=== PATIENT | male | born 1980 | race Caucasian/White ===

== ENCOUNTER 2025-03-23 14:49 | Emergency (ER) | payer BC, SELFPAY ==
[2025-03-23] VITALS (10 sets, daily range): BP systolic 123–139; BP diastolic 89–103; PULSE 68–94; RESP 16–19; TEMP 36.7–37.1; O2SAT 98–100; BMI 27.2
--- NOTE | 2025-03-23 15:08 | CT_ITS ---
FINAL REPORT TECHNIQUE: IV contrast enhanced exam This study was performed with techniques to keep radiation doses as low as reasonably achievable, (ALARA). Individualized dose reduction techniques using automated exposure control or adjustment of mA and/or kV according to the patient's size were employed. CLINICAL HISTORY: lower abdominal pain/bleeding with stool COMPARISON: None FINDINGS: Abdomen: Lung bases are clear. The gallbladder is unremarkable. Liver demonstrates a hypodense 13 mm posterior right liver focus, that is denser than a simple cyst. The spleen, pancreas and adrenal glands are unremarkable. Kidneys show no mass or obstruction. No bowel obstruction or fluid collection is seen. Pelvis: The appendix is normal in appearance. There is questionable wall thickening of the splenic flexure versus underdistention. There is severe sigmoid diverticulosis, with wall thickening of the mid sigmoid, with adjacent stranding that likely represents diverticulitis. Trace free fluid is noted in the pelvis. IMPRESSION: 1. Wall thickening of the mid sigmoid colon with stranding in the adjacent soft tissues, that likely represents diverticulitis. 2. There is questionable wall thickening of the splenic flexure versus underdistention. 3. Recommend follow-up colonoscopy for further evaluation. Reviewed, Interpreted and Dictated by Ant Hernandez MD Transcribed by Kat Solis Authenticated and . [facility]
--- NOTE | 2025-03-23 15:17 | ECG_ITS ---
APPROVED REPORT Exam: Resting ECG HR:92 bpm ECG Measurements Heart Rate 92 AXES RI 143 P 65 QRSd 104 QRS 38 QT 367 T 56 QTc 417 Conclusion SINUS RHYTHM POSSIBLE RIGHT VENTRICULAR CONDUCTION DELAY [RSR (QR) IN V1/V2] No STEMI Electronically signed by : ANTONY VERA, 03/24/2025 00:09:03
--- NOTE | 2025-03-23 15:19 | ED_ITS ---
Discharge Plan Disposition Patient Disposition: Home, Self-Care Condition: Fair Prescriptions Prescriptions: New amoxicillin-pot clavulanate 875-125 mg tablet 1 tab PO Q12H Qty: 20 0RF hydrocodone-acetaminophen 5-325 mg tablet 1 tab PO Q8H PRN (Reason: pain) Qty: 12 0RF Referrals Follow up/Referrals: Joseph Quiroga APRN [Referring, Medical] - See instructions Ronnie Jose MD [Primary Care Provider, Medical] - See instructions Activity Restrictions/Add. Instructions Additional Instructions/Restrictions: Increase fluids and rest. Take antibiotics as directed. Please call a GI doctor in your area for colonoscopy. If any worsening pain or problems please return to the ED. Clinical Impressions Clinical Impression: Diverticulitis Stand Alone Forms Stand Alone Forms: Work/School Release Instructions Patient Instructions: DI for Diverticulitis, DI for Acute Abdominal Pain Print Language Print Language: Bulgarian Discharge ED Provider: Janis Young General Adult HPI <Kathi Milligan (ED), SANDY - Last Filed: 03/23/25 18:25> General Chief complaint: Abdominal Pain Stated complaint: poss appendicitis-sent by Joseph Quiroga Time Seen by Provider: 03/23/25 14:59 History of Present Illness HPI narrative: 44-year-old male presents to the ED today for complaint of mid lower abdominal pain that started Sunday. He has been having blood in his stools since Sunday as well. He has been having 5-6 stools a day. He will have small amount of stool come out and then bright red blood. He specifies that it is not dark blood. He says the pain is dull at times and then stabbing at times. He does have a nausea but no vomiting. He had chills and he felt like he had a fever on Sunday. He has not had any abdominal surgeries. He does have history of IBS and diverticulitis. He has no pain with urination. He did some heavy lifting earlier during the week. He did not notice any pain until Sunday. He went to [facility] to see her today since his doctor was out. She sent him here to the ER. No other symptoms noted. Related Data Previous Rx's ?Medication ?Instructions ?Recorded amoxicillin 875 mg-potassium 1 tab PO Q12H #20 tabs clavulanate 125 mg tablet hydrocodone 5 mg-acetaminophen 325 1 tab PO Q8H PRN pa in #12 tabs 03/23/25 mg tablet Allergies Allergy/AdvReac Type Severity Reaction Status Date / Time No Known Allergies Allergy Verified 03/23/25 15:46 PFSH <Kathi Milligan (ED), [employer] - Last Filed: 03/23/25 18:25> PFSH Disclaimer: The information contained in this section may have been updated after the patient was seen, as this information can be updated by other users. Social History (Updated 03/23/25 @ 18:25 by Kathi Milligan (ED), [employer]) Smoking Status: Never smoker alcohol intake: former current occupational status: other Travel in the last 8 weeks?: None Have you lived/traveled outside [place] in past 30 days?: No Contact w/someone who lives/traveled outside US past 30 days?: No Exposure to someone with infectious disease in past 14 days?: No Do you have a fever (greater than 100.4 F or 38 C)?: No Have you tested positive for COVID-19?: No Exposed to someone with COVID-19 in past 14 days?: No Do you have a sore throat?: No Do you have a cough?: No Do you have any weakness?: No Do you have any diarrhea?: No Are you experiencing any unusual bleeding?: No Do you have any muscle aches/pain?: No Do you have any abdominal pain?: No Are you experiencing loss of taste or smell?: No <Kathi Milligan (ED), [employer] - Last Filed: 03/23/25 18:25> ROS Obtained: Yes Systems reviewed as appropriate & no additional complaints except as documented Constitutional Constitutional: Reports as per HPI Physical Exam <Kathi Milligan (ED), [employer] - Last Filed: 03/23/25 18:25> General General appearance: alert and in no apparent distress Head Head exam: atraumatic and normocephalic Eye Eye exam: Present normal appearance, PERRL and EOMI ENT ENT exam: Present normal oropharynx and mucous membranes moist Neck Neck exam: Present full ROM and trachea midline Chest Chest inspection: Present normal inspection Respiratory Respiratory exam: Present normal lung sounds bilaterally Cardiovascular Cardiovascular exam: Present regular rate, normal rhythm, normal heart sounds, +S1 and +S2 Abdominal Exam Abdominal exam: Present soft, tenderness (Low mid abdominal pain and tenderness) and normal bowel sounds Extremities Exam Extremities exam: Present normal inspection, full ROM and normal capillary refill Neurological Exam Neurological exam: Present alert, oriented X3 and normal gait Skin Skin exam: Present warm, dry and intact Medical Decision Making <Kathi Payamkapil (ED), [employer]ST - Last Filed: 03/23/25 18:25> Medical Records Screening: Per USPSTF and CDC recommendations, given the prevalence of disease in our region, it is our hospital?s policy to screen for HIV and viral Hepatitis for all patients aged 18 and over and those with ongoing risk factors. Eder Inquiry Pt receiving controlled substance: No Eder was queried for this patient: No Vital Signs: 03/23/25 15:05 03/23/25 15:06 03/23/25 15:30 Temperature Temperature Source Pulse Rate 88 92 H 87 Pulse Rate [Left Radial] Respiratory Rate Blood Pressure 135/103 H 137/93 H 123/89 Blood Pressure [Right Arm] Blood Pressure Mean Blood Pressure Mean [Right Arm] Blood Pressure Source Blood Pressure Source [Right Arm] Blood Pressure Position Blood Pressure Position [Right Arm] 02 Sat by Pulse Oximetry 99 99 98 Oxygen Delivery Method 03/23/25 15:35 03/23/25 15:46 03/23/25 15:55 Temperature 98.8 F Temperature Source Oral Oral Pulse Rate 80 82 Pulse Rate [Left Radial] 94 H Respiratory Rate 19 16 Blood Pressure 135/90 135/90 Blood Pressure [Right Arm] 135/103 H Blood Pressure Mean Blood Pressure Mean [Right Arm] 113 Blood Pressure Source Automatic Cuff Blood Pressure Source [Right Arm] Automatic Cuff Blood Pressure Position Supine Blood Pressure Position [Right Arm] Supine 02 Sat by Pulse Oximetry 99 98 98 Oxygen Delivery Method Room Air Room Air 03/23/25 16:01 03/23/25 16:30 03/23/25 17:00 Temperature Temperature Source Pulse Rate 75 69 68 Pulse Rate [Left Radial] Respiratory Rate 18 Blood Pressure 133/90 139/90 125/89 Blood Pressure [Right Arm] Blood Pressure Mean 101 Blood Pressure Mean [Right Arm] Blood Pressure Source Automatic Cuff Blood Pressure Source [Right Arm] Blood Pressure Position Sitting Blood Pressure Position [Right Arm] 02 Sat by Pulse Oximetry 99 100 99 Oxygen Delivery Method Room Air 03/23/25 17:29 Temperature 98.0 F Temperature Source Pulse Rate 68 Pulse Rate [Left Radial] Respiratory Rate 16 Blood Pressure 125/89 Blood Pressure [Right Arm] Blood Pressure Mean Blood Pressure Mean [Right Arm] Blood Pressure Source Blood Pressure Source [Right Arm] Blood Pressure Position Blood Pressure Position [Right Arm] 02 Sat by Pulse Oximetry Oxygen Delivery Method Lab Data Lab Results 03/23/25 15:05: WBC 13.9 H, RBC 4.73, Hgb 14.9, Hct 42.1, MCV 89.0, MCH 31.5 H, MCHC 35.4, RDW 11.9, Plt Count 237, MPV 9.8, Neut % (Auto) 81.3 H, Lymph % (Auto) 11.3, [place] % (Auto) 6.5, Eos % (Auto) 0.3, Baso % (Auto) 0.3, Neut # (Auto) 11.3 H, Lymph # (Auto) 1.6, [place] # (Auto) 0.9, Eos # (Auto) 0.0, Baso # (Auto) 0.0, APTT 26.9, Sodium 136, Potassium 3.7, Chloride 99, Carbon Dioxide 26, Anion Gap 14.7, BUN 13, Creatinine 1.00, Estimated GFR 81, Est GFR ( Amer) 98, Glucose 115 H, Calcium 9.3, Magnesium 1.8, Total Bilirubin 1.2, AST 29, ALT 21, Alkaline Phosphatase 76, Troponin I < 0.01, C-Reactive Protein 36.8 H, Total Protein 7.9, Albumin 4.5, Globulin 3.4 H, Albumin/Globulin Ratio 1.3, Lipase 57 03/23/25 16:45: Urine Color Yellow, Urine Appearance Clear, Urine pH 6.5, Ur Specific [place] <= 1.005, Urine Protein Negative, Urine Glucose (UA) Negative, Urine Ketones Negative, Urine Blood 1+ A, Urine Nitrate Negative, Urine Bilirubin Negative, Urine Urobilinogen 0.2, Ur Leukocyte Esterase Negative, Urine WBC Occasional, Urine Bacteria Trace 03/23/25 15:05 03/23/25 15:05 Orders (Tests/Meds): ED MEDICATIONS Discontinued Medications Generic Name Dose Route Start Last Admin Trade Name Freq PRN Reason Stop Dose Admin Acetaminophen 1,000 mg 03/23/25 15:08 03/23/25 15:32 Acetaminophen 1,000mg/100ml Vial IV 03/23/25 15:09 1,000 mg ONCE ONE Administration Hydrocodone Bitart/Acetaminophen 2 tab 03/23/25 16:56 03/23/25 17:07 Hydrocodone/Apap 5/325 Mg Tablet PO 03/23/25 16:57 2 tab ONCE ONE Administration Amoxicillin/Clavulanate Potassium 1 each 03/23/25 16:56 03/23/25 17:07 Amoxicillin/Clavulanate Potassium 875/125mg Tablet PO 03/23/25 16:57 1 each ONCE ONE Administration Sodium Chloride 1,000 mls @ 999 mls/hr 03/23/25 15:08 03/23/25 15:32 Sod Chlor 0.9% 1000ml Bag IV 03/23/25 16:08 999 mls/hr .Q1H1M ONE Administration Iopamidol 75 ml 03/23/25 15:39 03/23/25 15:41 Iopamidol-370 (76%);100ml Bottle IV 03/23/25 15:40 75 ml ONCE ONE Administration Ondansetron HCl 4 mg 03/23/25 15:08 03/23/25 15:32 Ondansetron 4mg/2ml Vial IV 03/23/25 15:09 4 mg ONCE ONE Administration Sodium Chloride 10 ml 03/23/25 15:39 03/23/25 15:41 Sodium Chloride 0.9% 10ml Syr (Rad Only) IV 04/22/25 15:38 10 ml NEEDED PRN Administration Maintain IV Site ORDERS Category Date Time Status CT abdomen pelvis w con Stat Cat Scan 03/23/25 15:08 Completed CBC [Complete Blood Count Auto Diff] Stat Lab 03/23/25 15:05 Completed CRP [C-Reactive Protein] Stat Lab 03/23/25 15:05 Completed Comprehensive Metabolic Panel Stat Lab 03/23/25 15:05 Completed Erythrocyte Sedimentation Rate Stat Lab 03/23/25 15:05 Stop Req Lipase Stat Lab 03/23/25 15:05 Completed Magnesium Stat Lab 03/23/25 15:05 Completed PTT [Activated Partial Thrombo Time] Stat Lab 03/23/25 15:05 Completed Trop I [Troponin I] Stat Lab 03/23/25 15:05 Completed UA [Urinalysis and Microscopic] Stat Lab 03/23/25 16:45 Completed Medical Decision Narrative: patient is a 44-year-old male presenting to the emergency department for evaluation of abdominal pain in his low mid abdomen and bright red blood in his stools since Sunday. He also has nausea.. Patient is hemodynamically stable and nontoxic-appearing upon arrival, afebrile. Differential diagnosis includes diverticulitis, urinary infection, kidney stone, IBS, appendicitis, among others. Workup will be conducted with hematologic labs, specific imaging, . Initial inventions include crystalloid bolus, analgesics, antibiotics. Initial workup reviewed by me hematologic labs are remarkable for elevated white count at 13.9. Imaging informally interpreted by me and remarkable for diverticulitis. Formal imaging read remarkable for diverticulitis. Upon repeat evaluation patient's pain is improved. Discussed with Dr. Young we will treat with antibiotics, pain meds and have patient follow-up with GI. Patient's family wants colonoscopy done in [place]. Patient is safe for discharge home. <Janis Young, DO - Last Filed: 03/23/25 19:26> Eder Inquiry Pt receiving controlled substance: Yes Eder was queried for this patient: Yes Risks and benefits of using a controlled substance: were discussed with pt by ut Vital Signs: 03/23/25 15:05 03/23/25 15:06 03/23/25 15:30 Temperature Temperature Source Pulse Rate 88 92 H 87 Pulse Rate [Left Radial] Respiratory Rate Blood Pressure 135/103 H 137/93 H 123/89 Blood Pressure [Right Arm] Blood Pressure Mean Blood Pressure Mean [Right Arm] Blood Pressure Source Blood Pressure Source [Right Arm] Blood Pressure Position Blood Pressure Position [Right Arm] 02 Sat by Pulse Oximetry 99 99 98 Oxygen Delivery Method 03/23/25 15:35 03/23/25 15:46 03/23/25 15:55 Temperature 98.8 F Temperature Source Oral Oral Pulse Rate 80 82 Pulse Rate [Left Radial] 94 H Respiratory Rate 19 16 Blood Pressure 135/90 135/90 Blood Pressure [Right Arm] 135/103 H Blood Pressure Mean Blood Pressure Mean [Right Arm] 113 Blood Pressure Source Automatic Cuff Blood Pressure Source [Right Arm] Automatic Cuff Blood Pressure Position Supine Blood Pressure Position [Right Arm] Supine 02 Sat by Pulse Oximetry 99 98 98 Oxygen Delivery Method Room Air Room Air 03/23/25 16:01 03/23/25 16:30 03/23/25 17:00 Temperature Temperature Source Pulse Rate 75 69 68 Pulse Rate [Left Radial] Respiratory Rate 18 Blood Pressure 133/90 139/90 125/89 Blood Pressure [Right Arm] Blood Pressure Mean 101 Blood Pressure Mean [Right Arm] Blood Pressure Source Automatic Cuff Blood Pressure Source [Right Arm] Blood Pressure Position Sitting Blood Pressure Position [Right Arm] 02 Sat by Pulse Oximetry 99 100 99 Oxygen Delivery Method Room Air 03/23/25 17:29 Temperature 98.0 F Temperature Source Pulse Rate 68 Pulse Rate [Left Radial] Respiratory Rate 16 Blood Pressure 125/89 Blood Pressure [Right Arm] Blood Pressure Mean Blood Pressure Mean [Right Arm] Blood Pressure Source Blood Pressure Source [Right Arm] Blood Pressure Position Blood Pressure Position [Right Arm] 02 Sat by Pulse Oximetry Oxygen Delivery Method Lab Data Lab Results 03/23/25 15:05: WBC 13.9 H, RBC 4.73, Hgb 14.9, Hct 42.1, MCV 89.0, MCH 31.5 H, MCHC 35.4, RDW 11.9, Plt Count 237, MPV 9.8, Neut % (Auto) 81.3 H, Lymph % (Auto) 11.3, [place] % (Auto) 6.5, Eos % (Auto) 0.3, Baso % (Auto) 0.3, Neut # (Auto) 11.3 H, Lymph # (Auto) 1.6, [place] # (Auto) 0.9, Eos # (Auto) 0.0, Baso # (Auto) 0.0, APTT 26.9, Sodium 136, Potassium 3.7, Chloride 99, Carbon Dioxide 26, Anion Gap 14.7, BUN 13, Creatinine 1.00, Estimated GFR 81, Est GFR ( Amer) 98, Glucose 115 H, Calcium 9.3, Magnesium 1.8, Total Bilirubin 1.2, AST 29, ALT 21, Alkaline Phosphatase 76, Troponin I < 0.01, C-Reactive Protein 36.8 H, Total Protein 7.9, Albumin 4.5, Globulin 3.4 H, Albumin/Globulin Ratio 1.3, Lipase 57 03/23/25 16:45: Urine Color Yellow, Urine Appearance Clear, Urine pH 6.5, Ur Specific [place] <= 1.005, Urine Protein Negative, Urine Glucose (UA) Negative, Urine Ketones Negative, Urine Blood 1+ A, Urine Nitrate Negative, Urine Bilirubin Negative, Urine Urobilinogen 0.2, Ur Leukocyte Esterase Negative, Urine WBC Occasional, Urine Bacteria Trace Orders (Tests/Meds): ED MEDICATIONS Discontinued Medications Generic Name Dose Route Start Last Admin Trade Name Anjelica PRN Reason Stop Dose Admin Acetaminophen 1,000 mg 03/23/25 15:08 03/23/25 15:32 Acetaminophen 1,000mg/100ml Vial IV 03/23/25 15:09 1,000 mg ONCE ONE Administration Hydrocodone Bitart/Acetaminophen 2 tab 03/23/25 16:56 03/23/25 17:07 Hydrocodone/Apap 5/325 Mg Tablet PO 03/23/25 16:57 2 tab ONCE ONE Administration Amoxicillin/Clavulanate Potassium 1 each 03/23/25 16:56 03/23/25 17:07 Amoxicillin/Clavulanate Potassium 875/125mg Tablet PO 03/23/25 16:57 1 each ONCE ONE Administration Sodium Chloride 1,000 mls @ 999 mls/hr 03/23/25 15:08 03/23/25 15:32 Sod Chlor 0.9% 1000ml Bag IV 03/23/25 16:08 999 mls/hr .Q1H1M ONE Administration Iopamidol 75 ml 03/23/25 15:39 03/23/25 15:41 Iopamidol-370 (76%);100ml Bottle IV 03/23/25 15:40 75 ml ONCE ONE Administration Ondansetron HCl 4 mg 03/23/25 15:08 03/23/25 15:32 Ondansetron 4mg/2ml Vial IV 03/23/25 15:09 4 mg ONCE ONE Administration Sodium Chloride 10 ml 03/23/25 15:39 03/23/25 15:41 Sodium Chloride 0.9% 10ml Syr (Rad Only) IV 04/22/25 15:38 10 ml NEEDED PRN Administration Maintain IV Site ORDERS Category Date Time Status CT abdomen pelvis w con Stat Cat Scan 03/23/25 15:08 Completed CBC [Complete Blood Count Auto Diff] Stat Lab 03/23/25 15:05 Completed CRP [C-Reactive Protein] Stat Lab 03/23/25 15:05 Completed Comprehensive Metabolic Panel Stat Lab 03/23/25 15:05 Completed Erythrocyte Sedimentation Rate Stat Lab 03/23/25 15:05 Stop Req Lipase Stat Lab 03/23/25 15:05 Completed Magnesium Stat Lab 03/23/25 15:05 Completed PTT [Activated Partial Thrombo Time] Stat Lab 03/23/25 15:05 Completed Trop I [Troponin I] Stat Lab 03/23/25 15:05 Completed UA [Urinalysis and Microscopic] Stat Lab 03/23/25 16:45 Completed ECG Data Tracing #1: I reviewed this ECG and interpreted as documented below: Normal sinus rhythm with a ventricular rate of 92 bpm. Right ventricular conduction delay. Nonspecific ST/T wave changes. No acute ST changes concerning for ischemia. ECG initial impression date: 03/23/25 ECG initial impression time: 15:17 Medical Decision Narrative: patient is a 44-year-old male presenting to the emergency department for evaluation of abdominal pain in his low mid abdomen and bright red blood in his stools since Sunday. He also has nausea.. Patient is hemodynamically stable and nontoxic-appearing upon arrival, afebrile. Differential diagnosis includes diverticulitis, urinary infection, kidney stone, IBS, appendicitis, among others. Workup will be conducted with hematologic labs, specific imaging, . Initial inventions include crystalloid bolus, analgesics, antibiotics. Initial workup reviewed by me hematologic labs are remarkable for elevated white count at 13.9. Imaging informally interpreted by me and remarkable for diverticulitis. Formal imaging read remarkable for diverticulitis. Upon repeat evaluation patient's pain is improved. Discussed with Dr. Young we will treat with antibiotics, pain meds and have patient follow-up with GI. Patient's family wants colonoscopy done in [place]. Patient is safe for discharge home. DO Hector: I was consulted by the RYLEE, and we discussed the complexity of the problems being addressed. I approved the treatment and management plan for this patient's care in the emergency department, thus performing a substantive portion of the medical decision making. I prescribed [place] for pain in the setting of acute diverticulitis. Instructions for safe use were given Janis Young DO Critical Care <Kathi Milligan (ED), [employer]ICAL [employer] - Last Filed: 03/23/25 18:25> Critical Care Time Critical Care Time: No
[2025-03-23 15:20] LABS: Hematocrit 42.1 % (42.0-52.0); Hemoglobin 14.9 g/dL (14.1-18.0); Immature Granulocytes % 0.3 %; Mean Corpuscular HGB Conc 35.4 g/dL (31.8-35.4); Mean Corpuscular Hemoglobin 31.5 pg (27.0-31.2); Mean Corpuscular Volume 89.0 fl (80-94); Nucleated Red Blood Cells % 0 %; Platelet Count 237 K/mm3 (142-424); Red Blood Count 4.73 M/mm3 (4.60-6.20); Red Cell Distribution Width-SD 38.5 fL; White Blood Count 13.9 K/mm3 (4.8-10.8)
[2025-03-23 15:24] LABS: Albumin Level 4.5 g/dl (3.5-5.0); Chloride 99 mmol/L (98-107); Sodium 136 mmol/L (136-145)
[2025-03-23 15:25] LABS: Potassium 3.7 mmoL/L (3.5-5.1)
[2025-03-23 15:27] LABS: Alanine Aminotransferase 21 U/L (12-78); Albumin/Globulin Ratio 1.3 (1.1-1.8); Alkaline Phosphatase 76 U/L (38-126); Anion Gap 14.7 mEq/L (5-15); Aspartate Amino Transferase 29 U/L (17-59); Bilirubin,Total 1.2 mg/dl (0.2-1.3); Blood Urea Nitrogen 13 mg/dl (9-20); Calcium 9.3 mg/dl (8.4-10.2); Carbon Dioxide 26 mmol/L (22.0-30.0); Creatinine,Serum 1.00 mg/dl (0.66-1.25); Estimated Glomerular Filt Rate 81 ml/min (>60); GFR (African American) 98 ML/MIN (>60); Globulin 3.4 g/dL (1.3-3.2); Glucose 115 mg/dl (74-100); Lipase 57 U/L (23-300); Total Protein,Serum 7.9 g/dl (6.3-8.2)
[2025-03-23 15:28] LABS: Magnesium 1.8 mg/dl (1.6-2.3)
[2025-03-23 15:29] LABS: Activated Partial Thrombo Time 26.9 seconds (22.8-30.6)
[2025-03-23] MEDS: ONDANSETRON 4MG/2ML VIAL 4 MG IV (15:32)
[2025-03-23] MEDS: ACETAMINOPHEN 1,000MG/100ML VIAL 1000 MG IV (15:32)
[2025-03-23] MEDS: 0.9 % SODIUM CHLORIDE 1000ML 1,000 ML 999 ML IV (15:32)
[2025-03-23 15:33] LABS: C-Reactive Protein 36.8 mg/L (0-4)
--- OUTSIDE RECORDS SUMMARY | 2025-03-23 15:39 | XMS_ITS | Continuity of Care Document ---
Author Organization [facility] Address [address] [place] [address] Assessment No assessment recorded. Plan of Treatment Reminders Order Date Submit Date Provider Last Modified By Organization Details Last Modified Time Details Appointments Establish ed Patient 2024 01:20P M Joseph Quiroga APRN Not available Not available Not available Follow Up 2025 04:30P M Ronnie Jose MD Not available Not available Not available Lab lipid panel, serum 2024 025 [facility], [address] [place] [address], [id number], 03/19/2025 06:18:08 CMP, serum or plasma 2024 025 [facility], [address] [place] [address], [id number], 03/19/2025 06:18:07 CBC w/ auto diff 2024 025 [facility], [address] [place] [address], [id number], 03/19/2025 06:18:07 TSH + free T4, serum 2024 025 [facility], [address] [place] [address], [id number], 03/19/2025 06:18:06 Referral None recorded. Procedures None recorded. Surgeries None recorded. Imaging None recorded. Medication Orders acyclovir 800 mg tablet 2024 025 [facility] [id number], [address] , [place], [address], 03/18/2025 14:37:59 pantopraz ole 40 mg tablet,de layed release 2024 025 [facility] [id number], [address] [place], [address], 03/18/2025 14:37:58 levothyro xine 75 mcg tablet 2024 025 [facility] [id number], [address] , [place], [address], 03/18/2025 14:37:56 Patient TargetsNo targets recorded. Patient Instructions Encounter Date Encounter Id Patient Instructions Last Modified By Organization Details Last Modified Time 03/18/2025 [id number] Quitting Tobacco : Care Instructions [email or web address] Not available 03/18/2025 15:01:11 Men's Guide to Preventive Health Care [email or web address] Not available 03/18/2025 15:01:11 Reason for Referral None Reported. Problems Name Problem SNOMED Code Status Onset Date Resolution Date Notes Provider Name and Address Organization Details Recorded Time Gastroesop hageal reflux disease without esophagiti s 387749931 Active 2016 SHANNAN Broussard [facility] 7 15:03:47 Restless legs 85726358 Active 2016 SHANNAN Broussard [facility] 7 15:04:07 Hypothyroi dism 68024476 Active 2017 SHANNAN Broussard [facility] 8 16:25:07 Vitamin D deficiency 25753581 Active 2017 SHANNAN Broussard [facility] 8 16:25:17 Testostero ne level below reference range 758694326 Active 2017 SHANNAN Broussard [facility] 8 16:25:30 Hyperlipid emia 18202012 Active 2017 SHANNAN Piña [facility] 8 14:23:50 Nicotine dependence 30188735 Active 2018 Mamie boy[place], [place] - [facility] 9 16:30:11 COVID-19 517000810 Active 2021 Chacha Coley PA-C [address], [place], [address] , [place] - [facility] 2 11:03:02 History of diverticul itis 8010809437758 00 Active 2024 SHANNAN Coleman - [facility] 5 13:39:59 Problem Notes None recorded. Procedures Surgical History Date Name Laterality Status Provider Name and Address Organization Details Recorded Time 08/30/20 23 Medication Reconcilliation completed Maral Sotok [place] - [facility] 08/30/2023 09:16:12 01/09/20 20 Diastolic B/P 80-89 mm Hg completed Mamie Mo [place] - [facility] 01/09/2020 14:35:39 01/09/20 20 Systolic B/P greater than or equal to 140 mm Hg completed Mamie Mo [place] - [facility] 01/09/2020 14:35:34 03/27/20 13 dental surgery completed Sophy Lane [place] - [facility] 03/23/2025 13:25:00 dental surgery completed Heather Bray [place] - [facility] 04/16/2018 14:05:51 Imaging Results None recorded. Procedure Notes None recorded. Medical Equipment None Reported. Allergies No known drug allergies Medications Name Sig Start Date Stop Date Status Note LastModified by Organization Details LastModified Time amoxicill in 500 mg capsule take 1 capsule (500 mg) by oral route every 12 hours for 10 days 08/06 completed amoxicil louie 500 mg oral capsule; Recorded Status: Recorded on: 04/03/20 13 4:14PM;D iscontin ued Status: Disconti nued on: 08/06/20 13 1:22PM;U ser: glascock r Not Available Not Available Not Available ropinirol e 1 mg tablet Take 1 tablet every day by oral route. 07/06 completed Not Available Not Available Not Available Carafate 100 mg/mL oral suspensio n 09/06 completed Not Available Not Available Not Available tizanidin e 4 mg tablet 06/19 completed Not Available Not Available Not Available ranitidin e 300 mg tablet Take 1 tablet every day by oral route. 04/10 completed Not Available Not Available Not Available ondansetr on HCl 4 mg tablet 09/06 completed Not Available Not Available Not Available prednison e 20 mg tablet Take 1 tablet 3 times a day by oral route. 04/10 completed Not Available Not Available Not Available Zithromax Z-Terry 250 mg tablet take 2 tablets (500 mg) by oral route once daily for 1 day then 1 tablet (250 mg) by oral route once daily for 4 days 10/04 completed Zithroma x Z-Terry 250 mg oral tablet;R ecorded Status: Recorded on: 05/23/20 12 11:19AM; Disconti nued Status: Disconti nued on: 10/04/19 13 9:48AM;U ser: grossert ;Est. Completi on: 06/02/20 12;Indic ation: Maxillar y Sinusiti s, Acute - (461.0); Printed: 05/23/20 12 Not Available Not Available Not Available metronida zole 500 mg tablet 03/18 completed Not Available Not Available Not Available ciproflox acin 500 mg tablet 06/18 completed Not Available Not Available Not Available omeprazol e 40 mg capsule,d elayed release take 1 capsule (40 mg) by oral route once daily before a meal for 30 days 05/15 completed omeprazo le 40 mg oral capsule, delayed release( /EC);P rescribe Status: Prescrib ed on: 04/15/20 14 2:28PM;U ser: earlywin ec;Est. Completi on: 05/15/20 14;Pharm acyVerif ied: 04/15/20 14 2:28PM Not Available Not Available Not Available acyclovir 800 mg tablet Take 1 tablet 3 times a day by oral route as needed. 2024 active Not Available Not Available Not Avai lable ondansetr on 8 mg disintegr ating tablet Place 1 tablet every 8 hours by translin gual route for 2 days. 06/19 completed Not Available Not Available Not Available Depo-Medr ol 80 mg/mL suspensio n for injection Take 80 mg by injectio n route. 09/06 completed no reaction to the injectio n site in office Not Available Not Available Not Available Gentak 0.3 % (3 mg/gram) eye ointment 04/10 completed Not Available Not Available Not Available levothyro xine 75 mcg tablet TAKE ONE TABLET BY MOUTH DAILY 2024 active Not Available Not Available Not Avai lable ceftriaxo ne 1 gram solution for injection Take 1 g by injectio n route. 09/06 completed no reaction to the injectio n site office Not Available Not Available Not Available amoxicill in 875 mg tablet 09/06 completed Not Available Not Available Not Available Lortab 10 mg-500 mg tablet 08/06 completed Lortab 10-500 mg oral tablet;R ecorded Status: Recorded on: 04/03/20 13 4:14PM;D iscontin ued Status: Disconti nued on: 08/06/20 13 1:22PM;U ser: glascock r;Indica tion: Pain - (16.7809 00) Not Available Not Available Not Available ropinirol e 0.25 mg tablet Take 1 tablet every day by oral route at bedtime for 30 days. 04/16 completed Not Available Not Available Not Available pantopraz ole 40 mg tablet,de layed release TAKE ONE TABLET BY MOUTH TWICE A DAY 2024 active Not Available Not Available Not Avai lable promethaz ine 25 mg tablet take 1 tablet by oral route Q4-6H PRN N/V 04/03 completed prometha zine 25 mg oral tablet;R ecorded Status: Recorded on: 10/04/19 13 10:05AM; Disconti nued Status: Disconti nued on: 04/03/20 13 4:11PM;U ser: guttmann ;Est. Completi on: 10/09/19 13;Indic ation: Nausea and Vomiting - (16.7870 10);Prin treva: 10/04/19 13 Not Available Not Available Not Available Synthroid 50 mcg tablet Take 1 tablet every day by oral route for 30 days. 04/24 completed pt was told on 01/24/19 to take 1.5 until gone to make 75mcg Not Available Not Available Not Available omeprazol e 20 mg capsule,d elayed release 09/05 completed Not Available Not Available Not Available diclofena c sodium 75 mg tablet,de layed release 01/24 completed Not Available Not Available Not Available testoster one cypionate 200 mg/mL intramusc ular oil Inject 1 mL every 4 weeks by intramus cular route. 01/08 completed Not Available Not Available Not Available levofloxa makayla 500 mg tablet Take 1 tablet every 24 hours by oral route. 04/10 completed Not Available Not Available Not Available methylpre dnisolone 4 mg tablets in a dose pack Take 1 dose pk by oral route as directed . 07/20 completed Not Available Not Available Not Available Vitamin D2 1,250 mcg (50,000 unit) capsule once month 05/23 completed Vitamin D2 50,000 unit oral capsule; Recorded Status: Recorded on: 10/02/19 12 9:21AM;D iscontin ued Status: Disconti nued on: 05/23/20 12 10:58AM; User: jasper Est. Completi on: 03/30/20 12;Print ed: 10/02/19 12 Not Available Not Available Not Available azithromy makayla 500 mg tablet 09/06 completed Not Available Not Available Not Available rosuvasta tin 20 mg tablet Take 1 tablet every day by oral route for 90 days. 2024 active Not Available Not Available Not Avai lable Prevpac 500 mg-500 mg-30 mg oral pack as directed 2011 completed Prevpac 500-500- 30 mg oral combo pack;Rec orded Status: Recorded on: 10/02/19 12 9:21AM;D iscontin ued Status: Disconti nued on: 11/08/19 12 3:14PM;U ser: [email or web address]; Est. Completi on: 10/09/19 12;Print ed: 10/02/19 12 Not Available Not Available Not Available Mucinex DM 30 mg-600 mg tablet,ex tended release 12 hr Take 1 tablet every 12 hours by oral route. 04/10 completed Not Available Not Available Not Available Mucinex D 60 mg-600 mg tablet,ex tended release take 1 tablet by oral route every 12 hours as needed for 10 days 10/04 completed Mucinex D 60-600 mg oral tablet extended release 12 hr;Recor ded Status: Recorded on: 05/23/20 12 11:19AM; Disconti nued Status: Disconti nued on: 10/04/19 13 9:48AM;U ser: grossert ;Est. Completi on: 07/22/20 12;Indic ation: Maxillar y Sinusiti s, Acute - (461.0); Printed: 05/23/20 12 Not Available Not Available Not Available Vitals Date Recorded Body height Body mass index (BMI) Body weight Body temperature Heart rate Oxygen saturation Oxygen saturation in Arterial blood by Pulse oximetry Respiratory rate Systolic And Diastolic Systolic And Diastolic Provider Name and Address Organization Details Last Updated DateTime 5 177.8 cm 27.8 kg/m2 48198.9 2 g 98.5 [degF] 70 /min 97 % 97 % 18 /min 102/90 mm[Hg] 100/86 mm[Hg] Mamie Mo [place] - [facility] 5 14:21:15 Social History Question Answer Notes LastModified by Organizat ion Details LastModified Time Tobacco Smoking Status Former Smoker Mamie Mo [facility], [place] - [facility] 07/06/2021 13:54:37 Able To Swim? Yes Information not available 09/06/2017 Do You Have An Advance Directive? No Information not available 09/06/2017 Are You Blind Or Do You Have Difficulty Seeing? No Information not available 09/06/2017 Is Blood Transfusion Acceptable In An Emergency? Yes Information not available 03/23/2025 What Is Your Level Of Caffeine Consumption? Moderate Information not available 09/06/2017 How Much Tobacco Do You Chew? 1/day 1/2 Can Qd Information not available 09/06/2017 In The 14 Days Before Symptom Onset, Have You Had Close Contact With A Laboratory-confir med COVID-19 While That Case Was Ill? No Information not available 07/20/2023 In The 14 Days Before Symptom Onset, Have You Had Close Contact With A Person Who Is Under Investigation For COVID-19 While That Person Was Ill? No Information not available 07/20/2023 Have You Been To An Area Known To Be High Risk For COVID-19? No Information not available 07/20/2023 Are You Deaf Or Do You Have Serious Difficulty Hearing? No Information not available 09/06/2017 What Type Of Diet Are You Following? REGULAR Information not available 09/06/2017 Which Illicit Or Recreational Drugs Have You Used? None Information not available 09/06/2017 Have You Processed Blood Or Body Fluids From An Ebola Virus Disease Patient Without Appropriate PPE? No Information not available 07/20/2023 Do You Reside In Or Have You Traveled To An Area Where Ebola Virus Transmission Is Active? No Information not available 07/20/2023 What Is The Highest Grade Or Level Of School You Have Completed Or The Highest Degree You Have Received? [id number] Information not available 07/06/2021 Swimming/diving No Informati on not available 09/06/2017 Have There Been Any Changes To Your Family Or Social Situation? No Information no t available 07/06/2021 What Is The Fluoride Status Of Your Home? Fluoridated Information not available 07/06/2021 When Did You Quit Smoking? 1-5yearssindisha martinez Information not available 09/06/2017 Hard Of Hearing Or Deaf In One Or Both Ears? No Information not available 09/06/2017 Have You Recently Or Are You Planning To Travel To An Area With Zika Virus? No Information not available 07/20/2023 How Many Years Have You Used Illicit Or Recreational Drugs? 0 Information not available 03/23/2025 Legally Blind In One Or Both Eyes? No Information no t available 09/06/2017 Live Alone Or With Others? With Others Information not available 09/06/2017 What Was The Date Of Your Most Recent Tobacco Screening? 03/18/2025 Information not available 03/18/2025 How Many Children Do You Have? 3 Information not available 09/06/2017 What Is Your Current Pack Years? 10-19packyears Information not available 07/20/2022 Do You Use Protection During Sex? Always Information not available 03/23/2025 Do You Use Protection Against STDs? Always Information not available 03/23/2025 What Is Your Relationship Status? Information not available 09/06/2017 Do You Use Your Seat Belt Or Car Seat Routinely? Yes Information not available 03/23/2025 Seat Belts Used Routinely Yes Information not available 09/06/2017 Are You Sexually Active? Yes Information not available 09/06/2017 Smoke Alarm In Home Yes Information not available 09/06/2017 Do You Have Smoke And Carbon Monoxide Detectors In Your Home? Yes Information not available 07/06/2021 At What Age Did You Start Smoking Tobacco? 13 Information not available 03/23/2025 Are You Passively Exposed To Smoke? No Information no t available 09/06/2017 How Much Tobacco Do You Smoke? No Information not available 07/06/2021 General Stress Level Low Information not available 09/06/2017 Do You Use Sunscreen Routinely? Yes Information not available 09/06/2017 Has Tobacco Cessation Counseling Been Provided? Yes Information not available 07/06/2021 On What Date Was Tobacco Cessation Counseling Provided? 03/18/2025 Information not available 03/18/2025 How Many Years Have You Smoked Tobacco? 15 Information not available 03/23/2025 Do You Have Difficulty Walking Or Climbing Stairs? No Information not available 09/06/2017 What Contraceptive Method Was Reported At Start Of This Visit? None Information not available 12/21/2022 What Contraceptive Method Was Reported At End Of This Visit? None Information not available 12/21/2022 Do You Want To Talk About Contraception Or Prevention During Your Visit Today? No - This Question Does Not Apply To Me/I Prefer Not To Answer Information not available 12/21/2022 Which Type Of Protection Is Used? Only Have One Partner Information not available 03/23/2025 Sex: Male Functional Status Question Answer Note LastModified by Organizat ion Details LastModified Time Do you or have you ever used smokeless tobacco? Current snuff user 1/2 can qd Information not available 06/19/2019 Are you currently employed? Yes Information not available 09/06/2017 Do you have transportation difficulties? No Information not available 07/06/2021 Are you able to care for yourself? Yes Information n ot available 09/06/2017 Do you have difficulty dressing or bathing? No Information not available 09/06/2017 Do you or have you ever used e-cigarettes or vape? Never used electronic cigarettes Information not available 06/19/2019 What is your exercise level? Occasional Information not available 03/23/2025 Do you use any illicit or recreational drugs? No Information not available 07/06/2021 Do you or have you ever used any other forms of tobacco or nicotine? Yes Information not available 07/06/2021 What is your level of alcohol consumption? None Information not available 09/06/2017 Are you able to walk? YESWOREST Information not available 09/06/2017 Do you have difficulty doing errands alone? 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 [id number] Information not available 07/06/2021 Do you have difficulty concentrating, remembering or making decisions? No Information no t available 09/06/2017 Family History Relationship Description Onset Age of this Age Resolved Age Notes LastModified by Organization Details LastModified Time Mother Diabetes mellitus bstears Not available 2024 13:24:59 Mother Hypertensive disorder Not available 2016 15:05:15 Father Squamous cell carcinoma bstears Not available 2024 13:24:59 Sister Asthma bstears Not available 13:24:59 Sister Diabetes mellitus bstears Not available 2024 13:24:59 Medical History No medical history recorded. Immunizations Vaccine Type Date Status Note Provider Nam e and Address Organization Details Recorded Time Td (adult), 2 Lf tetanus toxoid, preservative free, adsorbed 6 completed Not Available [facility] 03/23/2025 13:05:32 Td (adult), 2 Lf tetanus toxoid, preservative free, adsorbed 4 completed Not Available [facility] 03/23/2025 13:05:32 Past Encounters Encounter ID Performer Location Encounter Start Date Encounter Closed Date Diagnosis/Indication Diagnosis SNOMED-CT Code Diagnosis ICD10 Code Diagnosis Note [id number] Ronnie Jose MD [address] [place] [address] 03/18/2025 13:54:59 03/18/2025 14:51:55 General examination of patient 812411124 Z00.00 Exercises education, guidance, and counseling 176241281 Z71.82 The patient was advised to continue a healthy diet and exercise regularly. Dietary ma nagement surveillance 153232589 Z71.3 Nicotine dependence 5629 4008 F17.200 Testostero ne level below reference range 293390951 R79.89 Hyperlipidemia 43821935 E78.5 Vitamin D deficiency 347 48277 E55.9 Hypothyroidism 91148961 E03.9 Restless legs 67675323 G 25.81 Gastroesop hageal reflux disease without esophagitis 199713191 K21.9 Genital he rpes simplex 89474398 A60.9 Overweight in adulthood with body mass index of 25 or more but less than 30 046226007 Z68.27 Health Concerns Section Related Observation LastModified by Organization Detai ls LastModified Time None Recorded Concern Status LastModified by Organization Details LastModified Time None Recorded Payers Encounter Date Sequence Insurance Name Policy Number Policy Mills Covered Member ID Mills Member ID Guarantor Name 03/18/2025 1 [employer] [employer] [id number] Abisai Fitzgerald [id number] Abisai Fitzgerald Notes Date Note Type Note Provider Name and Address Organization Details Recorded Time 03/18/2025 text/html Here for wellness exam for ins. Feels well. Ronnie Jose MD [facility] [address], [place], [address], [place] - [facility] 03/18/2025 14:38:47
--- OUTSIDE RECORDS SUMMARY | 2025-03-23 15:39 | XMS_ITS | Continuity of Care Document ---
Author Organization [facility] Address [address] [place] [address] Assessment No assessment recorded. Plan of Treatment Reminders Order Date Submit Date Provider Last Modified By Organization Details Last Modified Time Details Appointments Establish ed Patient 2024 01:20P M Joseph Quiroga APRN Not available Not available Not available Follow Up 2025 04:30P M Ronnie Jose MD Not available Not available Not available Lab None recorded. Referral None recorded. Procedures None recorded. Surgeries None recorded. Imaging None recorded. Medication Orders None recorded. Patient TargetsNo targets recorded. Patient InstructionsNo instructions recorded. Reason for Referral None Reported. Problems Name Problem SNOMED Code Status Onset Date Resolution Date Notes Provider Name and Address Organization Details Recorded Time Gastroesop hageal reflux disease without esophagiti s 583155479 Active 2016 SHANNAN Broussard [facility] 7 15:03:47 Restless legs 25254059 Active 2016 SHANNAN Broussard [facility] 7 15:04:07 Hypothyroi dism 48354258 Active 2017 SHANNAN Broussard [facility] 8 16:25:07 Vitamin D deficiency 84531371 Active 2017 SHANNAN Broussard [facility] 8 16:25:17 Testostero ne level below reference range 660998820 Active 2017 SHANNAN Broussard [facility] 8 16:25:30 Hyperlipid emia 15178433 Active 2017 Jaylen Palma SHANNAN boyer - [facility] 8 14:23:50 Nicotine dependence 08718174 Active 2018 SHANNAN Broussard - [facility] 9 16:30:11 COVID-19 780812844 Active 2021 Chacha Coley PA-C [address], [place], [address] , [place] - [facility] 2 11:03:02 History of diverticul itis 6272209546727 00 Active 2024 SHANNAN Coleman - [facility] 5 13:39:59 Problem Notes None recorded. Procedures Surgical History Date Name Laterality Status Provider Name and Address Organization Details Recorded Time 08/30/20 Medication Reconcilliation completed Maral Ward [place] - [facility] 08/30/2023 09:16:12 01/09/20 20 Diastolic B/P 80-89 mm Hg completed Mamie Mo [facility] 01/09/2020 14:35:39 01/09/20 20 Systolic B/P greater than or equal to 140 mm Hg completed Mamie Mo [place] - [facility] 01/09/2020 14:35:34 03/27/20 [address] surgery completed [address] [place] - [facility] 03/23/2025 13:25:00 dental surgery completed Heather Bray [place] - [facility] 04/16/2018 14:05:51 Imaging Results None [...] le 40 mg oral capsule, delayed release( DR/EC);P rescribe Status: Prescrib ed on: 04/15/20 14 [...] 10/09/19 13;Indic ation: Nausea and Vomiting - (16.5570 10);Prin treva: 10/04/19 13 Not Available Not [...] nued on: 05/23/20 12 10:58AM; User: jasper Maldonado Complethazel on: 03/30/20 12;Print ed: 10/02/19 12 Not [...] Disconti nued on: 11/08/19 12 3:14PM;U ser: jasper Est. Completi on: 10/09/19 12;Print ed: 10/02/19 [...] height Body mass index (BMI) Body weight Heart rate Oxygen saturation Oxygen saturation in Arterial blood by Pulse oximetry Respiratory rate Body temperature Systolic And Diastolic Provider Name and Address Organization Details Last Updated DateTime 5 177.8 cm 27.4 kg/m2 82714.5 4 g 98 /min 99 % 99 % 18 /min 98.1 [degF] 110/92 mm[Hg] Sophy [address] [place] - [facility] 5 13:29:15 Social History Question Answer Notes LastModified by Organizat ion Details LastModified Time Tobacco Smoking Status Former Smoker Mamie [place], [place] - [facility] 07/06/2021 13:54:37 Able To [...] Have You Had Close Contact With A Laboratory-[facility] COVID-19 While That Case Was Ill? No [...] Or The Highest Degree You Have Received? [id number] Information not available 07/06/2021 Swimming/diving No Informati on not available 09/06/2017 Have There Been Any Changes To Your Family Or Social Situation? No Information no t available 07/06/2021 What Is The Fluoride Status Of Your Home? Fluoridated Information not available 07/06/2021 When Did You Quit Smoking? 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 [id number] Information not available 07/06/2021 Do you have [...] 13:24:59 Sister Diabetes mellitus bstears Not available 07/14/ 2025 13:24:59 Medical History No medical history recorded. Immunizations Vaccine Type Date Status Note Provider Nam e and Address Organization Details Recorded Time Td (adult), 2 Lf tetanus toxoid, preservative free, adsorbed 6 completed Not Available [facility] 03/23/2025 13:05:32 Td (adult), 2 Lf tetanus toxoid, preservative free, adsorbed 4 completed Not Available [facility] 03/23/2025 13:05:32 Past Encounters Encounter ID Performer Location Encounter Start Date Encounter Closed Date Diagnosis/Indication Diagnosis SNOMED-CT Code Diagnosis ICD10 Code Diagnosis Note [id number] Ronnie Jose MD [address] [place] [address] 03/18/2025 13:54:59 03/18/2025 14:51:55 General examination of patient 748262270 Z00.00 Exercises education, guidance, and counseling 749804885 Z71.82 The patient was advised to continue a healthy diet and exercise regularly. Dietary ma nagement surveillance 119704829 Z71.3 Nicotine dependence 5629 4008 F17.200 Testostero ne level below reference range 677448391 R79.89 Hyperlipidemia 53553731 E78.5 Vitamin D deficiency 347 06960 E55.9 Hypothyroidism 27415451 E03.9 Restless legs 25970269 G 25.81 Gastroesop hageal reflux disease without esophagitis 616816904 K21.9 Genital he rpes simplex 00043109 A60.9 Overweight in adulthood with body mass index of 25 or more but less than 30 510385133 Z68.27 [id number] Joseph Quiroga APRN [address] [address] 03/23/2025 13:04:36 03/23/2025 14:10:46 Lower abdominal pain 64523754 R10.30 sent to ed for eval to r/o appendicit isreport called to er Blood-tinged feces 06832 85761 41902 K92.1 Health Concerns Section Related Observation LastModified by Organization Detai ls LastModified Time None Recorded Concern Status LastModified by Organization Details LastModified Time None Recorded Payers Encounter Date Sequence Insurance Name Policy Number Policy Mills Covered Member ID Mills Member ID Guarantor Name 03/23/2025 1 [place] [employer] [id number] Abisai Fitzgerald [id number] Abisai Fitzgerald Notes Date Note Type Note Provider Name and Address Organization Details Recorded Time 03/23/2025 text/html 44 year old male who presents to the office today with concerns ofrt lower abdominal pain and bright red/pink blood in stool, all started on Sunday, having a hard time walking and sitting, painful when pushing on abdomen,history of diverticulitis in August 2023 Joseph Quiroga, [employer] [address], [place], [address], [place] - [facility] 03/23/2025 14:09:05
--- OUTSIDE RECORDS SUMMARY | 2025-03-23 15:39 | XMS_ITS | Data Portability ---
Author Organization [facility] Address [address] [place] [address] Assessment Encounter Date Assessment Date Assessment LastModified by Organization Details LastModified Time 08/30/2023 08/30/2023 -Medications were reviewed and any necessary updates and renewals were made, patient instructed to complete as prescribed. -The potential side effects of medications were discussed. -Counseling was done on care goals and ways to prevent future hospitalizatio ns. -Further treatment per orders listed below. [email or web address] Not available 08/30/2023 09:16:11 Plan of Treatment Reminders Order Date Submit Date Provider Last Modified By Organization Details Last Modified Time Details Appointments Establish ed Patient 2024 01:20P M Joseph Quiroga APRN Not available Not available Not available Follow Up 2025 04:30P M Ronnie Jose MD Not available Not available Not available Lab lipid panel, serum 2024 025 [facility], [address] [place] [address], [id number], 03/19/2025 06:18:08 CMP, serum or plasma 2024 025 [facility], [address] [place] [address], [id number], 03/19/2025 06:18:07 CBC w/ auto diff 2024 025 [facility], [address] [place] [address], [id number], 03/19/2025 06:18:07 TSH + free T4, serum 2024 025 [facility], [address] [place], [address], 03/19/2025 06:18:06 lipid panel, serum 2023 024 [facility], [address], [address], [place], [address], 06/19/2024 06:21:05 CMP, serum or plasma 2023 024 [facility], [address], [place] [address], [place], [address], 06/19/2024 06:21:04 glucose, fingersti ck, blood 2023 024 [facility], [address] [place] [address] , [place], [address], 06/18/2024 16:16:00 TSH + free T4, serum 2023 024 [facility], [address] [place] [address], [id number], 06/19/2024 06:21:04 lipid panel, serum 2022 023 [facility], [address] [place] [address], [address], 07/21/2023 09:12:52 glucose, fasting, QN, serum or plasma 2022 023 [facility], [address] [place] [address], [address], 07/21/2023 09:12:53 Referral None recorded. Procedures None recorded. Surgeries None recorded. Imaging None recorded. Medication Orders acyclovir 800 mg tablet 2024 025 [facility] [id number], [address] [place] [address] , [place], [address], 03/18/2025 14:37:59 pantopraz ole 40 mg tablet,de layed release 2024 025 [facility] [id number], [address] [facility] [facility] , [place], [address], 03/18/2025 14:37:58 levothyro xine 75 mcg tablet 2024 025 [facility] [id number], [address] , [place], [address], 03/18/2025 14:37:56 pantopraz ole 40 mg tablet,de layed release 2023 024 [facility] [id number], [address] , [place], [address], 06/18/2024 09:17:23 levothyro xine 75 mcg tablet 2023 024 [facility] [id number], [address] , [place], [address], 06/18/2024 09:17:24 acyclovir 800 mg tablet 2022 023 [facility] [id number], [address] , [place], [address], 08/30/2023 10:02:38 levothyro xine 75 mcg tablet 2022 023 [facility] [id number], [address] , [place], [address], 07/20/2023 15:06:19 Patient TargetsNo targets recorded. Patient Instructions Encounter Date Encounter Id Patient Instructions Last Modified By Organization Details Last Modified Time 07/20/2023 [id number] Quitting Tobacco : Care Instructions [email or web address] Not available 07/20/2023 15:05:26 Men's Guide to Preventive Health Care [email or web address] Not available 07/20/2023 15:05:26 learning about healthy weight tgrosser Not available 07/20/2023 15:06:17 08/30/2023 [id number] learning about healthy weight [email or web address] Not available 08/30/2023 10:02:34 Instructed in high fiber diet and told to take fibercon 2 tabs daily. [email or web address] Not available 08/30/2023 10:02:33 06/18/2024 [id number] [facility]'s Guide to Preventive Health Care [email or web address] Not available 06/18/2024 09:15:58 restless legs syndrome: care instructions [email or web address] Not available 06/18/2024 09:15:59 learning about healthy weight [email or web address] Not available 06/18/2024 09:17:17 hypothyroidism: care instructions [email or web address] Not available 06/18/2024 09:15:59 03/18/2025 [id number] Quitting Tobacco : Care Instructions [email or web address] Not available 03/18/2025 15:01:11 [facility]'s Guide to Preventive Health Care [email or web address] Not available 03/18/2025 15:01:11 Reason for Referral None Reported. Results Created Date Observation Date Name Description Value Unit Range Abnormal Flag Note LastModifiedBy Organization Detail LastModifiedTime 07/20/2007/21/2023 LIPID PANEL WITH LDL/H DL RATIO cholesterol, total 211 mg/dL 100-19 9 above high normal Not Available [facility] ([facility]) [address] [place], [address], 07/21/2023 09:12:52 07/20/20 23 07/21/2023 LIPID PANEL WITH LDL/H DL RATIO triglyceride s 156 mg/dL 0-149 above high normal Not Available [facility] ([facility]) [address] [place], [address], 07/21/2023 09:12:52 07/20/2007/21/2023 LIPID PANEL WITH LDL/H DL RATIO HDL cholesterol 44 mg/dL >39 Not Available [facility] ([facility]) [address] [place], [address], 07/21/2023 09:12:52 07/20/20 23 07/21/2023 LIPID PANEL WITH LDL/H DL RATIO VLDL cholesterol laila 28 mg/dL 5-40 Not Available [facility] ([facility]) [address] [place], [address], 07/21/2023 09:12:52 07/20/20 23 07/21/2023 LIPID PANEL WITH LDL/H DL RATIO LDL chol calc ([facility]) 139 mg/dL 0-99 above high normal Not Available [facility] ([facility]) [address] [place], [address], 07/21/2023 09:12:52 07/20/20 23 07/21/2023 LIPID PANEL WITH LDL/H DL RATIO comment: [employer] Not Available [facility] ([facility]) [address] [place], [address], 07/21/2023 09:12:52 07/20/20 23 07/21/2023 LIPID PANEL WITH LDL/H DL RATIO LDL/HDL ratio 3.2 ratio 0.0-3. 6 LDL/H DL Ratio Men Women 1/2 Avg.R isk 1.0 1.5 Avg.R isk 3.6 3.2 2X Avg.R isk 6.2 5.0 3X Avg.R isk 8.0 6.1 Not Available [facility] ([facility]) [address] [place], [address], 07/21/2023 09:12:52 07/20/20 23 07/21/2023 GLUCO SE, PLASM A glucose, plasma 80 mg/dL 70-99 Pleas e Note: Predi abete s 100 - 125 Diabe carmen >125 Not Available [facility] ([facility]) [address] [place], [address], 07/21/2023 09:12:53 06/18/20 24 06/19/2024 TSH+F REE T4 TSH 0.294 uIU/m L 0.450- 4.500 below low normal Not Available [facility] ([facility]) [address] [place], [address], 06/19/2024 06:21:04 06/18/20 24 06/19/2024 TSH+F REE T4 T4,free(dire ct) 1.13 NG/dL 0.82-1 .77 normal Not Available [facility] ([facility]) [address] [facility] [place], [address], 06/19/2024 06:21:04 06/18/20 24 06/19/2024 COMP. METAB OLIC PANEL (14) glucose 99 mg/dL 70-99 normal Not Available [facility] ([facility]) [address] [facility] [place], [address], 06/19/2024 06:21:04 06/18/20 24 06/19/2024 COMP. METAB OLIC PANEL (14) BUN 12 mg/dL 6-24 normal Not Available [facility] ([facility]) [address] [place], [address], 06/19/2024 06:21:04 06/18/20 24 06/19/2024 COMP. METAB OLIC PANEL (14) creatinine 1.05 mg/dL 0.76-1 .27 normal Not Available [facility] ([facility]) [address] [place], [address], 06/19/2024 06:21:04 06/18/20 24 06/19/2024 COMP. METAB OLIC PANEL (14) eGFR 90 mL/mi n/1.7 3 >59 normal Not Available [facility] ([facility]) [address] [place], [address], 06/19/2024 06:21:04 06/18/2006/19/2024 COMP. METAB OLIC PANEL (14) BUN/creatini ne ratio 11 9-20 normal Not Available [facility] ([facility]) [address] [place], [address], 06/19/2024 06:21:04 06/18/2003 0706/19/2024 COMP. METAB OLIC PANEL (14) sodium 138 mmol/ L 134-14 4 normal Not Available [facility] ([facility]) [address] [facility] [place], [address], 06/19/2024 06:21:04 06/18/20 24 06/19/2024 COMP. METAB OLIC PANEL (14) potassium 4.2 mmol/ L 3.5-5. 2 normal Not Available [facility] ([facility]) [address] [facility] [place], [address], 06/19/2024 06:21:04 06/18/20 24 06/19/2024 COMP. METAB OLIC PANEL (14) chloride 103 mmol/ L 96-106 normal Not Available [facility] ([facility]) [address] [facility] [place], [address], 06/19/2024 06:21:04 06/18/20 24 06/19/2024 COMP. METAB OLIC PANEL (14) carbon dioxide, total 22 mmol/ L 20-29 normal Not Available [facility] ([facility]) [address] [place], [address], 06/19/2024 06:21:04 06/18/20 24 06/19/2024 COMP. METAB OLIC PANEL (14) calcium 9.4 mg/dL 8.7-10 .2 normal Not Available [facility] ([facility]) [address] [place], [address], 06/19/2024 06:21:04 06/18/20 24 06/19/2024 COMP. METAB OLIC PANEL (14) protein, total 6.7 g/dL 6.0-8. 5 normal Not Available [facility] ([facility]) [address] [place], [address], 06/19/2024 06:21:04 06/18/20 24 06/19/2024 COMP. METAB OLIC PANEL (14) albumin 4.1 g/dL 4.1-5. 1 normal Not Available [facility] ([facility]) [address] [facility] [place], [address], 06/19/2024 06:21:04 06/18/20 24 06/19/2024 COMP. METAB OLIC PANEL (14) globulin, total 2.6 g/dL 1.5-4. 5 Not Available [facility] ([facility]) [address] [facility] [place], [address], 06/19/2024 06:21:04 06/18/20 24 06/19/2024 COMP. METAB OLIC PANEL (14) bilirubin, total 0.8 mg/dL 0.0-1. 2 normal Not Available [facility] ([facility]) [address] [facility] [place], [address], 06/19/2024 06:21:04 06/18/20 24 06/19/2024 COMP. METAB OLIC PANEL (14) alkaline phosphatase 106 IU/L 44-121 normal Not Available [facility] ([facility]) [address] [facility] [place], [address], 06/19/2024 06:21:04 06/18/20 24 06/19/2024 COMP. METAB OLIC PANEL (14) AST (SGOT) 18 IU/L 0-40 normal Not Available [facility] ([facility]) [address] [facility] [place], [address], 06/19/2024 06:21:04 06/18/20 24 06/19/2024 COMP. METAB OLIC PANEL (14) ALT (SGPT) 11 IU/L 0-44 normal Not Available [facility] ([facility]) [address] [facility] [place], [address], 06/19/2024 06:21:04 06/18/20 24 06/19/2024 LIPID PANEL cholesterol, total 206 mg/dL 100-19 9 above high normal Not Available [facility] ([facility]) [address] [facility] [place], [address], 06/19/2024 06:21:05 06/18/20 24 06/19/2024 LIPID PANEL triglyceride s 101 mg/dL 0-149 normal Not Available [facility] ([facility]) [address] [facility] [place], [address], 06/19/2024 06:21:05 06/18/20 24 06/19/2024 LIPID PANEL HDL cholesterol 48 mg/dL >39 normal Not Available [facility] ([facility]) [address] [facility] [place], [address], 06/19/2024 06:21:05 06/18/20 24 06/19/2024 LIPID PANEL VLDL cholesterol laila 18 mg/dL 5-40 Not Available [facility] ([facility]) [address] [place], [address], 06/19/2024 06:21:05 06/18/20 24 06/19/2024 LIPID PANEL LDL chol calc ([facility]) 140 mg/dL 0-99 above high normal Not Available [facility] ([facility]) [address] [facility] [place], [address], 06/19/2024 06:21:05 06/18/20 24 06/19/2024 LIPID PANEL LDL calc comment: [employer] Not Available [facility] ([facility]) [address] [place], [address], 06/19/2024 06:21:05 03/18/20 25 03/19/2025 TSH+F REE T4 TSH 0.378 uIU/m L 0.450- 4.500 below low normal Not Available [facility] ([facility]) [address] [place], [address], 03/19/2025 06:18:06 03/18/20 25 03/19/2025 TSH+F REE T4 T4,free(dire ct) 0.99 NG/dL 0.82-1 .77 normal Not Available [facility] ([facility]) [address] [place], [address], 03/19/2025 06:18:06 03/18/20 25 03/19/2025 CBC WITH DIFFE RENTI AL/PL ATELE T WBC 7.2 x10e3 /uL 3.4-10 .8 normal Not Available [facility] ([facility]) [address] [place], [address], 03/19/2025 06:18:07 03/18/2003/19/2025 CBC WITH DIFFE RENTI AL/PL ATELE T RBC 4.88 x10e6 /uL 4.14-5 .80 normal Not Available [facility] ([facility]) [address] [place], [address], 03/19/2025 06:18:07 03/18/2003/19/2025 CBC WITH DIFFE RENTI AL/PL ATELE T hemoglobin 15.1 g/dL 13.0-1 7.7 normal Not Available [facility] ([facility]) [address] [place], [address], 03/19/2025 06:18:07 03/18/2003/19/2025 CBC WITH DIFFE RENTI AL/PL ATELE T hematocrit 46.0 % 37.5-5 1.0 normal Not Available [facility] ([facility]) [address] [place], [address], 03/19/2025 06:18:07 03/18/2003/19/2025 CBC WITH DIFFE RENTI AL/PL ATELE T MCV 94 fL 79-97 normal Not Available [facility] ([facility]) [address] [place], [address], 03/19/2025 06:18:07 03/18/20 25 03/19/2025 CBC WITH DIFFE RENTI AL/PL ATELE T MCH 30.9 pg 26.6-3 3.0 normal Not Available [facility] ([facility]) [address] [place], [address], 03/19/2025 06:18:07 03/18/20 25 03/19/2025 CBC WITH DIFFE RENTI AL/PL ATELE T MCHC 32.8 g/dL 31.5-3 5.7 normal Not Available [facility] ([facility]) [address] [facility] [place], [address], 03/19/2025 06:18:07 03/18/20 25 03/19/2025 CBC WITH DIFFE RENTI AL/PL ATELE T RDW 12.7 % 11.6-1 5.4 Not Available [facility] ([facility]) [address] [place], [address], 03/19/2025 06:18:07 03/18/20 25 03/19/2025 CBC WITH DIFFE RENTI AL/PL ATELE T platelets 225 x10e3 /uL 150-45 0 normal Not Available [facility] ([facility]) [address] [place], [address], 03/19/2025 06:18:07 03/18/20 25 03/19/2025 CBC WITH DIFFE RENTI AL/PL ATELE T neutrophils 55 % not estab. normal Not Available [facility] ([facility]) [address] [place], [address], 03/19/2025 06:18:07 03/18/20 25 03/19/2025 CBC WITH DIFFE RENTI AL/PL ATELE T lymphs 37 % not estab. normal Not Available [facility] ([facility]) [address] [place], [address], 03/19/2025 06:18:07 03/18/20 25 03/19/2025 CBC WITH DIFFE RENTI AL/PL ATELE T monocytes 7 % not estab. normal Not Available [facility] ([facility]) [address] [place], [address], 03/19/2025 06:18:07 03/18/20 25 03/19/2025 CBC WITH DIFFE RENTI AL/PL ATELE T eos 1 % not estab. normal Not Available [facility] ([facility]) [address] [facility] [place], [address], 03/19/2025 06:18:07 03/18/20 25 03/19/2025 CBC WITH DIFFE RENTI AL/PL ATELE T basos 0 % not estab. normal Not Available [facility] ([facility]) [address] [facility] [place], [address], 03/19/2025 06:18:07 03/18/20 25 03/19/2025 CBC WITH DIFFE RENTI AL/PL ATELE T immature cells [employer] Not Available [facility] ([facility]) [address] [place], [address], 03/19/2025 06:18:07 03/18/20 25 03/19/2025 CBC WITH DIFFE RENTI AL/PL ATELE T neutrophils (absolute) 3.9 x10e3 /uL 1.4-7. 0 normal Not Available [facility] ([facility]) [address] [place], [address], 03/19/2025 06:18:07 03/18/20 25 03/19/2025 CBC WITH DIFFE RENTI AL/PL ATELE T lymphs (absolute) 2.6 x10e3 /uL 0.7-3. 1 normal Not Available [facility] ([facility]) [address] [place], [address], 03/19/2025 06:18:07 03/18/20 25 03/19/2025 CBC WITH DIFFE RENTI AL/PL ATELE T monocytes(ab solute) 0.5 x10e3 /uL 0.1-0. 9 normal Not Available [facility] ([facility]) [address] [facility] [place], [address], 03/19/2025 06:18:07 03/18/20 25 03/19/2025 CBC WITH DIFFE RENTI AL/PL ATELE T eos (absolute) 0.1 x10e3 /uL 0.0-0. 4 normal Not Available [facility] ([facility]) [address] [facility] [place], [address], 03/19/2025 06:18:07 03/18/20 25 03/19/2025 CBC WITH DIFFE RENTI AL/PL ATELE T baso (absolute) 0.0 x10e3 /uL 0.0-0. 2 normal Not Available [facility] ([facility]) [address] [facility] [place], [address], 03/19/2025 06:18:07 03/18/20 25 03/19/2025 CBC WITH DIFFE RENTI AL/PL ATELE T immature granulocytes 0 % not estab. Not Available [facility] ([facility]) [address] [facility] [place], [address], 03/19/2025 06:18:07 03/18/2003/19/2025 CBC WITH DIFFE RENTI AL/PL ATELE T immature grans (abs) 0.0 x10e3 /uL 0.0-0. 1 Not Available [facility] ([facility]) [address] [place], [address], 03/19/2025 06:18:07 03/18/20 25 03/19/2025 CBC WITH DIFFE RENTI AL/PL ATELE T NRBC [employer] Not Available [facility] ([facility]) [address] [facility] [place], [address], 03/19/2025 06:18:07 03/18/20 25 03/19/2025 CBC WITH DIFFE RENTI AL/PL ATELE T hematology comments: [employer] Not Available [facility] ([facility]) [address] [facility], [place], [address], 03/19/2025 06:18:07 03/18/20 25 03/19/2025 COMP. METAB OLIC PANEL (14) glucose 84 mg/dL 70-99 normal Not Available [facility] ([facility]) [address] [facility] [place], [address], 03/19/2025 06:18:07 03/18/20 25 03/19/2025 COMP. METAB OLIC PANEL (14) BUN 12 mg/dL 6-24 normal Not Available [facility] ([facility]) [address] [facility] [place], [address], 03/19/2025 06:18:07 03/18/20 25 03/19/2025 COMP. METAB OLIC PANEL (14) creatinine 1.16 mg/dL 0.76-1 .27 normal Not Available [facility] ([facility]) [address] [facility] [place], [address], 03/19/2025 06:18:07 03/18/20 25 03/19/2025 COMP. METAB OLIC PANEL (14) eGFR 80 mL/mi n/1.7 3 >59 normal Not Available [facility] ([facility]) [address] [facility] [place], [address], 03/19/2025 06:18:07 03/18/20 25 03/19/2025 COMP. METAB OLIC PANEL (14) BUN/creatini ne ratio 10 9-20 normal Not Available [facility] ([facility]) [address] [facility] [place], [address], 03/19/2025 06:18:07 03/18/20 25 03/19/2025 COMP. METAB OLIC PANEL (14) sodium 138 mmol/ L 134-14 4 normal Not Available [facility] ([facility]) [address] [facility] [place], [address], 03/19/2025 06:18:07 03/18/20 25 03/19/2025 COMP. METAB OLIC PANEL (14) potassium 4.2 mmol/ L 3.5-5. 2 normal Not Available [facility] ([facility]) [address] [facility] [place], [address], 03/19/2025 06:18:07 03/18/20 25 03/19/2025 COMP. METAB OLIC PANEL (14) chloride 100 mmol/ L 96-106 normal Not Available [facility] ([facility]) [address] [place], [address], 03/19/2025 06:18:07 03/18/20 25 03/19/2025 COMP. METAB OLIC PANEL (14) carbon dioxide, total 22 mmol/ L 20-29 normal Not Available [facility] ([facility]) [address] [facility] [place], [address], 03/19/2025 06:18:07 03/18/20 25 03/19/2025 COMP. METAB OLIC PANEL (14) calcium 9.4 mg/dL 8.7-10 .2 normal Not Available [facility] ([facility]) [address] [facility] [place], [address], 03/19/2025 06:18:07 03/18/20 25 03/19/2025 COMP. METAB OLIC PANEL (14) protein, total 6.4 g/dL 6.0-8. 5 normal Not Available [facility] ([facility]) [address] [facility] [place], [address], 03/19/2025 06:18:07 03/18/20 25 03/19/2025 COMP. METAB OLIC PANEL (14) albumin 4.3 g/dL 4.1-5. 1 normal Not Available [facility] ([facility]) [address] [facility] [place], [address], 03/19/2025 06:18:07 07/09/20 25 03/19/2025 COMP. METAB OLIC PANEL (14) globulin, total 2.1 g/dL 1.5-4. 5 Not Available [facility] ([facility]) [address] [facility] [place], [address], 03/19/2025 06:18:07 03/18/20 25 03/19/2025 COMP. METAB OLIC PANEL (14) bilirubin, total 0.8 mg/dL 0.0-1. 2 normal Not Available [facility] ([facility]) [address] [facility] [place], [address], 03/19/2025 06:18:07 03/18/20 25 03/19/2025 COMP. METAB OLIC PANEL (14) alkaline phosphatase 100 IU/L 44-121 normal Not Available [facility] ([facility]) [address] [facility] [place], [address], 03/19/2025 06:18:07 03/18/20 25 03/19/2025 COMP. METAB OLIC PANEL (14) AST (SGOT) 20 IU/L 0-40 normal Not Available [facility] ([facility]) [address] [facility] [place], [address], 03/19/2025 06:18:07 03/18/20 25 03/19/2025 COMP. METAB OLIC PANEL (14) ALT (SGPT) 14 IU/L 0-44 normal Not Available [facility] ([facility]) [address] [facility] [place], [address], 03/19/2025 06:18:07 03/18/20 25 03/19/2025 LIPID PANEL cholesterol, total 227 mg/dL 100-19 9 above high normal Not Available [facility] ([facility]) [address] [facility] [place], [address], 03/19/2025 06:18:08 03/18/20 25 03/19/2025 LIPID PANEL triglyceride s 168 mg/dL 0-149 above high normal Not Available [facility] ([facility]) [address] [place], [address], 03/19/2025 06:18:08 03/18/20 25 03/19/2025 LIPID PANEL HDL cholesterol 43 mg/dL >39 normal Not Available [facility] ([facility]) [address] [place], [address], 03/19/2025 06:18:08 03/18/20 25 03/19/2025 LIPID PANEL VLDL cholesterol laila 31 mg/dL 5-40 Not Available [facility] ([facility]) [address] [place], [address], 03/19/2025 06:18:08 03/18/20 25 03/19/2025 LIPID PANEL LDL chol calc ([facility]) 153 mg/dL 0-99 above high normal Not Available [facility] ([facility]) [address] [place], [address], 03/19/2025 06:18:08 03/18/20 25 03/19/2025 LIPID PANEL LDL calc comment: [employer] Not Available [facility] ([facility]) [address] [place], [address], 03/19/2025 06:18:08 Result Notes None recorded. Problems Name Problem SNOMED Code Status Onset Date Resolution Date Notes Provider Name and Address Organization Details Recorded Time Gastroesop hageal reflux disease without esophagiti s [id number] Active 2016 SHANNAN Broussard - [facility] 7 15:03:47 Restless legs 06560170 Active 2016 SHANNAN Broussard - [facility] 7 15:04:07 Hypothyroi dism 91136147 Active 2017 SHANNAN Broussard - [facility] 8 16:25:07 Vitamin D deficiency 24140502 Active 2017 SHANNAN Broussard - [facility] 8 16:25:17 Testostero ne level below reference range 621436774 Active 2017 Mamie boyer, SHANNAN - [facility] 8 16:25:30 Hyperlipid emia 68112084 Active 2017 SHANNAN Piña - [facility] 8 14:23:50 Nicotine dependence 96159901 Active 2018 SHANNAN Broussard - [facility] 9 16:30:11 COVID-19 261158917 Active 2021 Chacha Coley PA-C [address], [place], [address] , [place] [facility] 2 11:03:02 History of diverticul itis 3436366133063 00 Active 2024 SHANNAN Coleman - [facility] 5 13:39:59 Problem Notes None recorded. Procedures Surgical History Date Name Laterality Status Provider Name and Address Organization Details Recorded Time 08/30/20 23 Medication Reconcilliation completed Maral Hopper [place] - [facility] 08/30/2023 09:16:12 01/09/20 20 Diastolic B/P 80-89 mm Hg completed Mamie Mo [place] - [facility] 01/09/2020 14:35:39 01/09/20 20 Systolic B/P greater than or equal to 140 mm Hg completed Mamie Mo [place] - [facility] 01/09/2020 14:35:34 03/27/20 [address] surgery completed [address] [place] - [facility] 03/23/2025 13:25:00 dental surgery completed Heather Bray [place] - [facility] 04/16/2018 14:05:51 Imaging Results None [...] Prescrib ed on: 04/15/20 14 2:28PM;U ser: cass ec;Est. Completi on: 05/15/20 14;Pharm acyVerif ied: [...] nued on: 04/03/20 13 4:11PM;U ser: [email or web address] ;EstSerena Mujicai on: 10/09/19 13;Indic ation: Nausea and Vomiting [...] nued on: 05/23/20 12 10:58AM; User: jasper Godoy on: 03/30/20 12;Print ed: 10/02/19 12 Not [...] Updated DateTime 5 177.8 cm 27.8 kg/m2 73140.9 2 g 98.5 [degF] 70 /min 97 % 97 % 18 /min 102/90 mm[Hg] 100/86 mm[Hg] Mamie Mo [place] - [facility] 5 14:21:15 Date Recorded Body height Body mass index (BMI) Body weight Heart rate Oxygen saturation Oxygen saturation in Arterial blood by Pulse oximetry Respiratory rate Body temperature Systolic And Diastolic Provider Name and Address Organization Details Last Updated DateTime 5 177.8 cm 27.4 kg/m2 82703.5 4 g 98 /min 99 % 99 % 18 /min 98.1 [degF] 110/92 mm[Hg] Sophy Lane [place] - [facility] 5 13:29:15 Date Recorded Body height Body mass index (BMI) Body weight Body temperature Heart rate Oxygen saturation Oxygen saturation in Arterial blood by Pulse oximetry Respiratory rate Systolic And Diastolic Provider Name and Address Organization Details Last Updated DateTime 4 177.8 cm 27.7 kg/m2 69757.0 8 g 98.3 [degF] 68 /min 98 % 98 % 18 /min 126/82 mm[Hg] Iona Savage [place] - [facility] 4 09:05:21 Date Recorded Body height Body mass index (BMI) Body weight Body temperature Heart rate Oxygen saturation Oxygen saturation in Arterial blood by Pulse oximetry Respiratory rate Systolic And Diastolic Provider Name and Address Organization Details Last Updated DateTime 3 177.8 cm 27.7 kg/m2 09477.3 3 g 98 [degF] 78 /min 98 % 98 % 18 /min 104/84 mm[Hg] Mamie Mo [place] - [facility] 3 14:48:22 Date Recorded Body height Body mass index (BMI) Body weight Body temperature Heart rate Oxygen saturation Oxygen saturation in Arterial blood by Pulse oximetry Respiratory rate Systolic And Diastolic Provider Name and Address Organization Details Last Updated DateTime 3 177.8 cm 27.1 kg/m2 28585.3 1 g 98.1 [degF] 78 /min 98 % 98 % 18 /min 122/78 mm[Hg] Maral Hopper [place] - [facility] 3 09:26:42 Social History Question Answer Notes LastModified by Organizat ion Details LastModified Time Tobacco Smoking Status Former Smoker Mamie Mo [facility] 07/06/2021 13:54:37 Able To Swim? Yes [...] You Had Close Contact With A Laboratory-confir [facility] COVID-19 While That Case Was Ill? No [...] Or The Highest Degree You Have Received? [id number] Information not available 07/06/2021 Swimming/diving No Informati on not available 09/06/2017 Have There Been Any Changes To Your Family Or Social Situation? No Information no t available 07/06/2021 What Is The Fluoride Status Of Your Home? Fluoridated Information not available 07/06/2021 When Did You Quit Smoking? 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 [id number] Information not available 07/06/2021 Do you have [...] preservative free, adsorbed 6 completed Not Available On license of [facility] 03/23/2025 13:05:32 Td (adult), 2 Lf tetanus toxoid, preservative free, adsorbed 4 completed Not Available On license of [facility] 03/23/2025 13:05:32 Past Encounters Encounter ID Performer Location Encounter Start Date Encounter Closed Date Diagnosis/Indication Diagnosis SNOMED-CT Code Diagnosis ICD10 Code Diagnosis Note [id number] Nehemiah Burroughs MD [facility] [address] [place] [address] 09/05/2017 13:46:40 09/05/2017 16:15:01 Bronchitis 92936413 J40 Gastritis 3392069 K29.70 Body mass index 25-29 - overweight 536955028 Z68.28 [id number] Ronnie Jose MD [address] [place] [address] 09/06/2017 14:51:13 09/06/2017 15:42:01 Acute bronchitis 82361369 J20.9 Nausea 190441206 R11.0 Body mass index 25-29 - overweight 512770271 Z68.29 [id number] Ronnie Jose MD [address] [place] [address] 04/10/2018 13:58:59 04/10/2018 14:46:14 Restless legs 45815288 G25.81 Gastroesop hageal reflux disease without esophagitis 696047484 K21.9 Fatigue 93936617 R53.83 Body mass index 30+ - obesity 541645164 Z68.30 [id number] Jaylen Palma MD [address] [place] [address] 04/16/2018 13:54:44 04/16/2018 14:58:10 Testosterone level below reference range 863177317 R79.89 [id number] Jaylen Palma MD [address] [place] [address] 04/23/2018 16:26:41 04/23/2018 17:51:35 Testosterone level below reference range 465614924 R79.89 [id number] Ronnie Jose MD [address] [place] [address] 06/21/2018 16:00:02 06/21/2018 16:49:40 Testosterone level below reference range 385612517 R79.89 Vitamin D deficiency 347 58528 E55.9 Hypothyroidism 54409160 E03.9 Restless legs 64546860 G 25.81 Gastroesop hageal reflux disease without esophagitis 100724332 K21.9 Body mass index 30+ - obesity 261896580 Z68.30 [id number] Jaylen Palma MD [address] [place] [address] 07/05/2018 16:08:12 07/05/2018 17:08:48 General examination of patient 012199307 Z00.00 Hyperlipid emia screening 865159760 Z13.220 Screening for malignant neoplasm of prostate 076533958 Z12.5 Endocrine/ metabolic screening 569072867 Z13.228 Testostero ne level below reference range 979896785 R79.89 [id number] Jaylen Palma MD [address] [place] [address] 01/24/2019 12:52:01 01/24/2019 13:39:50 Testosterone level below reference range 275843049 R79.89 [facility] verified # [id number] Hypothyroidism 99565268 E03.9 Hyperlipid emia screening 433540431 Z13.220 Vitamin D deficiency 347 89577 E55.9 [id number] Ronnie Jose MD [address] [place] [address] 06/19/2019 15:50:08 06/19/2019 17:20:30 Hyperlipidemia screening 751598313 Z13.220 Testostero ne level below reference range 004496073 R79.89 Hyperlipidemia 86102249 E78.5 Vitamin D deficiency 347 40969 E55.9 Hypothyroidism 45629585 E03.9 Restless legs 51907867 G 25.81 Gastroesop hageal reflux disease without esophagitis 622236433 K21.9 Nicotine dependence 5629 4008 F17.200 Body mass index 25-29 - overweight 707456133 Z68.28 Herpes labialis 5013005 B00.1 Adult heal th examination 275057327 Z00.00 [id number] Ronnie Jose MD [address] [place] [address] 01/09/2020 14:22:57 01/09/2020 15:23:10 Nicotine dependence 38606541 F17.200 Testostero ne level below reference range 611008211 R79.89 Hyperlipidemia 23222522 E78.5 Vitamin D deficiency 347 15079 E55.9 Hypothyroidism 97609241 E03.9 Restless legs 01172580 G 25.81 Gastroesop hageal reflux disease without esophagitis 763418486 K21.9 Body mass index 25-29 - overweight 641685991 Z68.28 [id number] Ronnie Jose MD [address] [place] [address] 07/30/2020 12:47:36 07/30/2020 13:29:00 General examination of patient 758201827 Z00.00 Hyperlipid emia screening 807284133 Z13.220 Endocrine/ metabolic screening 303275434 Z13.228 Exercises education, guidance, and counseling 580426094 Z71.82 Dietary ma nagement surveillance 071243367 Z71.3 Body mass index 25-29 - overweight 164789195 Z68.28 Testostero ne level below reference range 401128421 R79.89 Gastroesop hageal reflux disease without esophagitis 751238408 K21.9 Hyperlipidemia 28712286 E78.5 Hypothyroidism 24298645 E03.9 Nicotine dependence 5629 4008 F17.200 Restless legs 34830799 G 25.81 Vitamin D deficiency 347 63619 E55.9 [id number] Ronnie Jose MD [address] [place] [address] 07/06/2021 13:40:45 07/06/2021 15:27:10 General examination of patient 781469094 Z00.00 Exercises education, guidance, and counseling 367459772 Z71.82 Dietary ma nagement surveillance 610583262 Z71.3 Testostero ne level below reference range 744347029 R79.89 Gastroesop hageal reflux disease without esophagitis 828076236 K21.9 Hyperlipidemia 25861102 E78.5 Hypothyroidism 53209715 E03.9 Nicotine dependence 5629 4008 F17.200 Restless legs 74506637 G 25.81 Vitamin D deficiency 347 20180 E55.9 Viral screening 42828643 4 Z11.52 Body mass index 25-29 - overweight 882481203 Z68.29 Genital he rpes simplex 37427417 A60.9 [id number] Ronnie Jose MD [address] [place] [address] 02/16/2022 16:24:56 02/16/2022 17:01:33 Nicotine dependence 57114681 F17.200 Testostero ne level below reference range 218481176 R79.89 Hyperlipidemia 33474071 E78.5 Vitamin D deficiency 347 81336 E55.9 Hypothyroidism 98314533 E03.9 Restless legs 56066165 G 25.81 Gastroesop hageal reflux disease without esophagitis 106347788 K21.9 Genital he rpes simplex 53861579 A60.9 Body mass index 25-29 - overweight 968249124 Z68.28 [id number] Chacha Coley PA-C [address] [address] 05/29/2022 10:00:15 05/29/2022 12:09:37 Viral screening 760267988 Z11.52 COVID-19 974281345 U07.1 -[facility] not had CMP since 2019, will send in medrol pack only [id number] Ronnie Jose MD [address] [place] [address] 07/20/2022 08:26:00 07/20/2022 09:09:06 Nicotine dependence 78754703 F17.200 Testostero ne level below reference range 204685079 R79.89 Hyperlipidemia 79541861 E78.5 Vitamin D deficiency 347 50516 E55.9 Hypothyroidism 28192181 E03.9 Restless legs 61921366 G 25.81 Gastroesop hageal reflux disease without esophagitis 972691317 K21.9 General ex amination of patient 449276760 Z00.00 Exercises education, guidance, and counseling 003169615 Z71.82 The patient was advised to continue a healthy diet and exercise regularly. Dietary ma nagement surveillance 682488943 Z71.3 Body mass index 25-29 - overweight 115885067 Z68.26 [id number] Ronnie Jose MD [address] [place] [address] 12/21/2022 15:36:39 12/21/2022 16:12:40 Nicotine dependence 87812985 F17.200 Testostero ne level below reference range 658887551 R79.89 Hyperlipidemia 89850058 E78.5 Vitamin D deficiency 347 39277 E55.9 Hypothyroidism 87066098 E03.9 Restless legs 82954727 G 25.81 Gastroesop hageal reflux disease without esophagitis 968982451 K21.9 Body mass index 25-29 - overweight 658431574 Z68.28 [id number] Ronnie Jose MD [address] [place] [address] 07/20/2023 14:30:31 07/20/2023 15:21:47 General examination of patient 644978782 Z00.00 Exercises education, guidance, and counseling 795865862 Z71.82 The patient was advised to continue a healthy diet and exercise regularly. Dietary ma nagement surveillance 141102934 Z71.3 Hyperlipidemia 81584636 E78.5 Gastroesop hageal reflux disease without esophagitis 591856159 K21.9 Hypothyroidism 82113611 E03.9 Restless legs 49170850 G 25.81 Nicotine dependence 5629 4008 F17.200 Vitamin D deficiency 347 88155 E55.9 Testostero ne level below reference range 403937611 R79.89 Body mass index 25-29 - overweight 799564180 Z68.27 [id number] Ronnie Jose MD [address] [place] [address] 08/30/2023 09:15:35 08/30/2023 09:54:34 Genital herpes simplex 38803146 A60.9 Diverticul itis of colon 004192112 K57.32 resolved Body mass index 25-29 - overweight 455170502 Z68.27 [id number] Ronnie Jose MD [address] [place] [address] 06/18/2024 08:45:53 06/18/2024 09:36:40 General examination of patient 348681764 Z00.00 Hyperlipid emia screening 280715407 Z13.220 Endocrine/ metabolic screening 153375092 Z13.228 Exercises education, guidance, and counseling 985621708 Z71.82 The patient was advised to continue a healthy diet and exercise regularly. Dietary ma nagement surveillance 908830106 Z71.3 Vaccination declined 360 1650911 Z28.21 Seasonal flu vaccine offered and declined Gastroesop hageal reflux disease without esophagitis 711180647 K21.9 Hypothyroidism 93297197 E03.9 Restless legs 26993589 G 25.81 Vitamin D deficiency 347 10617 E55.9 Body mass index 25-29 - overweight 405395602 Z68.27 [id number] Ronnie Jose MD [address] [place] [address] 03/18/2025 13:54:59 03/18/2025 14:51:55 General examination of patient 714525684 Z00.00 Exercises education, guidance, and counseling 108556862 Z71.82 The patient was advised to continue a healthy diet and exercise regularly. Dietary ma nagement surveillance 965172685 Z71.3 Nicotine dependence 5629 4008 F17.200 Testostero ne level below reference range 073112128 R79.89 Hyperlipidemia 82252612 E78.5 Vitamin D deficiency 347 92269 E55.9 Hypothyroidism 79277060 E03.9 Restless legs 50729032 G 25.81 Gastroesop hageal reflux disease without esophagitis 248322658 K21.9 Genital he rpes simplex 15147738 A60.9 Overweight in adulthood with body mass index of 25 or more but less than 30 629106321 Z68.27 [id number] Joseph Quiroga APRN [facility] [address] [place] [address] 03/23/2025 13:04:36 03/23/2025 14:10:46 Lower abdominal pain 59033936 R10.30 sent to ed for eval to r/o appendicit isreport called to er Blood-tinged feces 67250 20959 61715 K92.1 Health Concerns Section Related Observation LastModified by Organization Detai ls LastModified Time None Recorded Concern Status LastModified by Organization Details LastModified Time None Recorded Advance Directives Directive N: Payers Insurance Date Sequence Insurance Name Policy Number Policy Mills Covered Member ID Mills Member ID Guarantor Name 01/24/2019 1 [place] [id number] Rosa Maria Fitzgerald [id number] Abisai Fitzgerald 03/23/2025 1 [place] [id number] Abisai Fitzgerald [id number] Abisai Fitzgerald 07/21/2022 2 [place] [id number] Rosa Marai Fitzgerald [id number] Abisai Fitzgerald Notes Date Note Type Note Provider Name and Address Organization Details Recorded Time 07/20/2023 text/html Here for annual wellness exam for ins. Problems are GERD, hypothyroidism. Feels well. Ronnie Jose MD [address], [address], [place] [facility] 07/20/2023 15:06:58 08/30/2023 text/html Emergency Depart ment Follow-Up RecordReported bypatient.Discharge InformationName of hospital/urgent care patient was seen:; Patient presented to hospital/urgent care on or around: actual date 08/25/23; Patient presented to hospital for treatment of:; Treatment received by hospital/urgent care:; Patient's condition has: improved; Hospital records available at the time of this visit: Yes Abisai presents to the office today for emergency room follow up. Pt was seen at [facility] on 08/25/23 for abd pain, pt was diagnosed with diverticulitis. Treated with flagyl and cipro. Now feels back to normal. Needs refill acyclovir for herpes. Ronnie Jose MD [address], [place], [address], [place] [facility] 08/30/2023 10:03:05 06/18/2024 text/html Here for annual exam for ins. Feels well. Ronnie Jose MD [address], [place], [address], [place] [facility] 06/18/2024 09:18:03 03/18/2025 text/html Here for wellnes s exam for ins. Feels well. Ronnie Jose MD [address], [place], [address], [place] [facility] 03/18/2025 14:38:47 03/23/2025 text/html 44 year old male who presents to the office today with concerns ofrt lower abdominal pain and bright red/pink blood in stool, all started on Sunday, having a hard time walking and sitting, painful when pushing on abdomen,history of diverticulitis in August 2023 Joseph Quiroga APRN [address], [place], [address], [place] [facility] 03/23/2025 14:09:05
--- OUTSIDE RECORDS SUMMARY | 2025-03-23 15:39 | XMS_ITS | Clinical Summary ---
Author Organization [facility] Address [address] [place] [address] Phone Care Team Providers Care Medical Center Director Name Role Phone Heike Hannah MD, Nehemiah Primary Care Provider + Social History Tobacco Use Types Packs/Day Years Used Date Smoking Tobacco: Never Assessed Sex and Gender Information Value Date Recorded Sex Assigned at Not on file Legal Sex Male 12:50 AM EDT Gender Identity Not on file Sexual Orientation Not on file Plan of Treatment Health Maintenance Due Date Last Done Comments Annual Wellness Exam 1983 DTaP/TDaP/Td (1 - Tdap) 1999 Hepatitis B Vaccine (1 of 3 - 19+ 3-dose series) 1999 COVID-19 Vaccine (2023-2 5 season) 2024 Influenza Vaccine (#1) 2025 Meningococcal B Vaccine Aged Out No l onger eligible based on patient's age to complete this topic Pneumococcal Vaccine 0-49 Aged Out No longer eligible based on patient's age to complete this topic Insurance [facility] Care Teams Medical Center Director Relationship Specialty Start Date End Date Nehemiah Burroughs MD [address] [place] [id number] PCP - General 08/08/10
[2025-03-23] MEDS: SODIUM CHLORIDE 0.9% 10ML SYR (RAD ONLY) 10 ML IV (15:41)
[2025-03-23] MEDS: IOPAMIDOL-370 (76%);100ML BOTTLE 75 ML IV (15:41)
[2025-03-23 15:44] LABS: Troponin I < 0.01 ng/ml (0.00-0.034)
[2025-03-23 16:51] LABS: Microscopic, Urine URINE MICROSCOPIC (MICROSCOPIC)
[2025-03-23 16:59] LABS: Bilirubin,Urine Negative (Negative); Color,Urine YELLOW (Yellow); Glucose,Urine (UA) Negative (Negative); Ketones,Urine Negative (Negative); Leukocyte Esterase,Urine Negative (Negative); PH,Urine 6.5 (5.0-8.5); Protein,Urine Negative (Negative); Specific Gravity, Urine <= 1.005 (1.005-1.030); Urobilinogen,Urine 0.2 EU/dl (0.2)
[2025-03-23] MEDS: HYDROCODONE/APAP 5/325 MG TABLET 2 TAB PO (17:07)
[2025-03-23] MEDS: AMOXICILLIN/CLAVULANATE POTASSIUM 875/125MG TABLET 1 EACH PO (17:07)
[2025-03-23 18:08] LABS: Bacteria,Urine Trace /lpf; WBC,Urine Occasional #/hpf (0-3)
== END 2025-03-23 17:31 | disposition home or self-care (01) ==
PROVIDERS: Nurse Practitioner; Emergency Provider Emergency Medicine; PCP Family Medicine
DX: K57.32 Diverticulitis of large intestine without perforation or abscess without bleeding (principal); R10.84 Generalized abdominal pain; R11.0 Nausea
CPT/HCPCS: 74177; 80053; 81001; 83690; 83735; 84484; 85025; 85730; 86140; 93005; 96361; 96374; 96375; 99285; J0131; J2405; J7030; Q9967

== ENCOUNTER 2025-07-01 10:38 | Day surgery (SDC) | payer BC, SELFPAY ==
[2025-06-25 13:26] VITALS: BMI 28.8
[2025-06-30 10:26] VITALS: BMI 28.7
--- NOTE | 2025-06-30 17:43 | P.HP_ITS ---
History of Present Illness *Admission Date: 07/01/25 *History of present illness: Mr. Fitzgerald is a 44-year-old gentleman who is here for diagnostic colonoscopy. He was seen in the ED in March for acute diverticulitis. The patient was initially diagnosed with diverticulitis in [place] in 2022 and at that time dubose d mid left-sided abdominal pain. This time he went to the ED on 03/23/2025 with intense lower abdominal pain. The CAT scan on 03/23 showed wall thickening of the mid sigmoid colon with stranding in the adjacent tissues consistent with acute uncomplicated diverticulitis. There was no abscess, microperforation, fistula or complication. He was treated with antibiotics and now is better. He did have dietary changes and began taking Metamucil. The Metamucil has really helped. He does state that his PCP in [place] did not alter his diet and he is confused about whether diet plays a role. He has never had a colonoscopy. He did have some bright red rectal bleeding that preceded his bout of diverticulitis last month. He does report regular bowel function. He reports no weight loss or family history of colon cancer. His abdominal pain has resolved. The examination is deemed medically necessary for diagnostic colonoscopy. The patient has been seen, interviewed and examined prior to the procedure by both myself and the anesthesia provider. [facility] Disclaimer: The information contained in this section may have been updated after the patient was seen, as this information can be updated by other users. 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 esophagitis Vitamin D deficiency Hypothyroidism Hyperlipidemia Surgical History History of dental surgery Family History Other Family history non-contributory Social History Smoking Status: Current every day smoker tobacco type: smokeless tobacco alcohol intake: current alcohol intake frequency: 0-2 drinks per day substance use type: denies use current occupational status: employed Travel in the last 8 weeks?: None Have you lived/traveled outside US in past 30 days?: No Contact w/someone who lives/traveled outside US past 30 days?: No Exposure to someone with infectious disease in past 14 days?: No Do you have a fever (greater than 100.4 F or 38 C)?: No Have you tested positive for COVID-19?: No Exposed to someone with COVID-19 in past 14 days?: No Do you have a sore throat?: No Do you have a cough?: No Do you have any weakness?: No Are you experiencing any nausea/vomitting?: No Do you have any diarrhea?: No Are you experiencing any unusual bleeding?: No Do you have any muscle aches/pain?: No Do you have any abdominal pain?: No Are you experiencing loss of taste or smell?: No Review of Systems Review of Systems Review of systems (narrative): Negative *Cardiovascular Comments: Negative *Gastrointestinal Comments: Negative *Genitourinary Comments: Negative *Musculoskeletal Comments: Negative *Neurologic Comments: Negative Meds Home Medications and Allergies Home Medications ?Medication ?Instructions ?Recorded ?Confirmed ?Type acyclovir 800 mg tablet 800 mg PO DAILY PRN herpes 0 04/29/25 07/01/25 History cetirizine 10 mg capsule (All Day 10 mg PO DAILY PRN a llergies 04/29/25 07/01/25 History Allergy (cetirizine)) cholecalciferol (vitamin D3) 125 125 mcg PO DAILY 04/1107/01/25 History mcg (5,000 unit) capsule levothyroxine 75 mcg tablet 75 mcg PO DAILY 04/29/25 1 History pantoprazole 40 mg tablet,delayed 40 mg PO DAILY 04/2907/01/25 History release psyllium husk (with sugar) 3 1 tbsp PO DAILY 04/29/25 07/01/25 History gram/7 gram oral powder (Metamucil (with sugar)) psyllium husk 0.4 gram capsule 0.8 g PO DAILY 04/29/25 07/01/25 History (Metamucil) rosuvastatin 20 mg tablet 20 mg PO DAILY 04/29/2506/11 History New Prescriptions to Start Prescriptions: Allergies Allergy/AdvReac Type Severity Reaction Status Date / Time No Known Allergies Allergy Verified 07/01/25 11:07 Exam Data for Last 24 hours I & O for Last 24 hours: Intake & Output 06/27/25 06/28/25 06/29/25 06/30/25 23:59 23:59 23:59 23:59 Weight 206 lb *Routine HEENT Exam Head: Present normocephalic Eye: Present EOMI and PERRL ENT: Present mucous membranes moist *Routine Neck Exam Neck: Present supple *Routine Respiratory Exam Respiratory: Present CTA bilaterally *Routine Cardiovascular Exam Cardiovascular: Present RRR *Routine Abdominal Exam Abdominal: Present soft and normoactive bowel sounds; Absent tenderness *Routine Rectal Exam Rectal:: deferred *Routine Genitalia Exam Genitalia:: deferred *Routine Extremities Exam Extremities: Absent cyanosis, clubbing or edema *Routine Skin Exam Skin: Present warm; Absent rash *Routine Neurological Exam Neurological: Present alert and oriented X3 Assessment and Plan *Assessment and plan (1) Sigmoid diverticulitis: Status: Acute Category: Medical Code(s): K57.32 - Diverticulitis of large intestine without perforation or abscess without bleeding (2) Bright red rectal bleeding: Status: Acute Category: Medical Code(s): K62.5 - Hemorrhage of anus and rectum (3) Left sided abdominal pain: Status: Acute Category: Medical Code(s): R10.9 - Unspecified abdominal pain Plan A/P: 1. Left-sided abdominal pain with recent sigmoid diverticulitis and some bright red rectal bleeding is the preprocedural diagnosis. The patient will be anesthetized/sedated using MAC sedation. The patient has been seen and examined. Cardiac and lung assessment prior to the examination is stable. Proceed with planned diagnostic colonoscopy.
--- NOTE | 2025-07-01 06:57 | P.PCN_ITS ---
[facility] Procedure Note Date: 07/01/25 Time: 12:01 Procedure Note:: Colonoscopy Procedure Report: Colonoscopy with EMR (endoscopic mucosal resection (submucosal injection of Eleview, snare cautery, soft coagulation and Endo Clip placement) and a cold snare polypectomy Endoscopist: Fidencio Cade II, MD Referring physician: Toño Jose MD, [address] [facility] , [place] [address] Date of Procedure: July 01, 2025 Equipment: Olympus [id number] adult colonoscope Sedation: MAC sedation Indication: Mr. Fitzgerald is a 44-year-old gentleman who is here for diagnostic colonoscopy. He was seen in the ED in March for acute diverticulitis. The patient was initially diagnosed with diverticulitis in [place] in 2022 and at that time had mid left-sided abdominal pain. This time he went to the ED on 03/23/2025 with intense lower abdominal pain. The CAT scan on 03/23 showed wall thickening of the mid sigmoid colon with stranding in the adjacent tissues consistent with acute uncomplicated diverticulitis. There was no abscess, microperforation, fistula or complication. He was treated with antibiotics and now is better. He did have dietary changes and began taking Metamucil. The Metamucil has really helped. He does state that his PCP in [place] did not alter his diet and he is confused about whether diet plays a role. He has never had a colonoscopy. He did have some bright red rectal bleeding that preceded his bout of diverticulitis last month. He does report regular bowel function. He reports no weight loss or family history of colon cancer. His abdominal pain has resolved. The examination is deemed medically necessary for diagnostic colonoscopy. Procedure: Prior to the procedure, a history and physical exam was performed, and patient's medications and allergies were reviewed. The risks, benefits and alternatives of the sedation and procedure were discussed with the patient. All questions were answered and informed consent was obtained. The patient was brought to the procedure room. Patient identification and proposed procedure were verified by the physician and the nurse. The patient was placed in a left lateral decubitus position and the scope was passed under direct vision. Throughout the procedure, the patient's blood pressure, pulse, and oxygen saturations were monitored continuously. The colonoscopy was accomplished without difficulty. The patient tolerated the procedure well. Findings: On digital rectal examination there was normal rectal tone. There were no external hemorrhoids. The colonoscope was introduced through the anal canal to the rectum and advanced to the cecum. The ileocecal valve and appendiceal orifice were identified. The scope was advanced a short distance into the ileum which appeared grossly normal. The scope was then withdrawn into the colon. There was large flat granular adenoma in the cecum (laterally spreading granular adenoma) that was 21 to 22 mm in length and 12 mm in width. The base of this was injected with Eleview submucosally and 6 to 7 mL was utilized. After the polyp was lifted, the polyp was removed via snare cautery. The polypectomy margin was coagulated using soft coagulation. The polypectomy site was closed with 2 endoclips. There were 2 diminutive polyps in the ascending colon (4 and 6 mm) which were removed via cold snare polypectomy. There was a larger pedunculated 16 to 17 mm polyp in the sigmoid colon that was removed via snare cautery. A single Endo Clip was placed over the polypectomy site to provide hemostasis. There was a 10 mm polyp in the rectosigmoid removed via snare cautery and a Endo Clip was placed over the polypectomy site. There were scattered diverticuli throughout the descending and sigmoid colon (LEFT colon) and there was some mild haustral edema in the sigmoid colon indicative of resolving sigmoid diverticulitis. The rectum was normal. Upon retroflexion within the rectum there were 2 internal hemorrhoids. The preparation was excellent throughout with Rosebush Preparation Score of 9. The cecal time was 19 minutes. Impression: 1. 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 Pedunculated 17 mm sigmoid colon polyp 3. 10 mm rectosigmoid polyp 4. Diminutive ascending polyps x 2 5. Extensive left-sided diverticulosis with evidence of resolving sigmoid diverticulitis 6. Grade 2 internal hemorrhoids Plan: I will follow-up the polyp histology and recommend repeat screening/surveillance colonoscopy in 1 year. I would encourage continuation of the dietary measures and psyllium fiber supplementation on a long-term daily maintenance basis.
[2025-07-01 11:09] VITALS: BP 129/91; PULSE 67; RESP 18; TEMP 36.3; O2SAT 97
[2025-07-01] MEDS: LACTATED RINGERS 1000ML 1,000 ML 50 ML IV (11:18)
--- NOTE | 2025-07-01 11:28 | P.PNANES_ITS ---
[facility] Disclaimer: The information contained in this section may have been updated after the patient was seen, as this information can be updated by other users. 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 esophagitis Vitamin D deficiency Hypothyroidism Hyperlipidemia Surgical History History of dental surgery Family History Other Family history non-contributory Social History Smoking Status: Current every day smoker tobacco type: smokeless tobacco alcohol intake: current alcohol intake frequency: 0-2 drinks per day substance use type: denies use current occupational status: employed Travel in the last 8 weeks?: None Have you lived/traveled outside [place] in past 30 days?: No Contact w/someone who lives/traveled outside US past 30 days?: No Exposure to someone with infectious disease in past 14 days?: No Do you have a fever (greater than 100.4 F or 38 C)?: No Have you tested positive for COVID-19?: No Exposed to someone with COVID-19 in past 14 days?: No Do you have a sore throat?: No Do you have a cough?: No Do you have any weakness?: No Are you experiencing any nausea/vomitting?: No Do you have any diarrhea?: No Are you experiencing any unusual bleeding?: No Do you have any muscle aches/pain?: No Do you have any abdominal pain?: No Are you experiencing loss of taste or smell?: No [facility] Anesthesia Checklist Patient Identification Patient Identification: Arm Band Structural Data Admitted From: Home Planned Operative Procedure/s: Colonoscopy Consent for Planned Operative Procedure(s) Verified: Yes Verified Documents: Surgical Consent and History and Physical NPO Status Verified Time NPO: 08:30 (finished prep) Additional verifications Anesthesia Reactions: No Airway Assessment Mallampati Score:: Class II C-Spine Mobility Assessed: Yes TMJ Mobility Assessed: Yes Dentition: Dentures-good fit (upper dentures removed) Neurological Assessment Level of Consciousness: Awake, Alert and Appropriate Anesthesia Plan Anesthesia Risk discussed: Yes Anesthesia Plan: Verified ASA Class: II Anesthesia Type: MAC
[2025-07-01 12:04] VITALS: BP 102/57; PULSE 90; RESP 18; TEMP 36.5; O2SAT 93
[2025-07-01 12:14] VITALS: BP 99/66; PULSE 72; RESP 18; O2SAT 96
[2025-07-01 12:24] VITALS: BP 99/64; PULSE 63; RESP 18; TEMP 36.5; O2SAT 97
[2025-07-01 12:34] VITALS: BP 104/70; PULSE 60; RESP 18; TEMP 36.5; O2SAT 99
== END 2025-07-01 12:47 | disposition home or self-care (01) ==
PROVIDERS: PCP Family Medicine; Visit Provider Internal Medicine Gastroenterology
PROC: 0DJD8ZZ Inspection of Lower Intestinal Tract, Via Natural or Artificial Opening Endoscopic (ICD-10-PCS; CPT 45378; principal; 2025-07-01 12:00)
DX: K57.30 Diverticulosis of large intestine without perforation or abscess without bleeding (principal); D12.2 Benign neoplasm of ascending colon; D12.0 Benign neoplasm of cecum; D12.5 Benign neoplasm of sigmoid colon; D12.7 Benign neoplasm of rectosigmoid junction; K64.1 Second degree hemorrhoids; Z87.19 Personal history of other diseases of the digestive system; E03.9 Hypothyroidism, unspecified; E78.5 Hyperlipidemia, unspecified; K21.9 Gastro-esophageal reflux disease without esophagitis; E55.9 Vitamin D deficiency, unspecified; F17.290 Nicotine dependence, other tobacco product, uncomplicated; Z79.899 Other long term (current) drug therapy; Z79.890 Hormone replacement therapy
CPT/HCPCS: 45385; 45390; J2003; J2704; J3010; J7120